=== PATIENT | male | born 1940 | race Two or more races ===

== ENCOUNTER 2025-03-01 06:13 | Day surgery (SDC) | payer MEDICARE, SELFPAY ==
[2025-03-01] VITALS (8 sets, daily range): BP systolic 126–144; BP diastolic 69–79; BMI 21.9
[2025-03-01 11:40] LABS: Glucose - Point of Care 108 mg/dl (70-99)
[2025-03-01 13:49] LABS: Glucose - Point of Care 87 mg/dl (70-99)
[2025-03-01 16:01] LABS: Glucose - Point of Care 133 mg/dl (70-99)
== END 2025-03-01 17:30 | disposition home or self-care (01) ==
LOC: SDS 06:13
PROVIDERS: ATTENDING PHYSICIAN Internal Medicine Gastroenterology
DX: K80.70 Calculus of gallbladder and bile duct without cholecystitis without obstruction (principal); R10.84 Generalized abdominal pain; R93.2 Abnormal findings on diagnostic imaging of liver and biliary tract; R10.13 Epigastric pain; K20.90 Esophagitis, unspecified without bleeding; K31.5 Obstruction of duodenum
CPT/HCPCS: 43264; 43262; 74018; 76000; 82962; C1769

== ENCOUNTER 2025-03-03 15:13 | Inpatient (IN) | payer MEDICARE, SELFPAY ==
[2025-03-03] VITALS (17 sets, daily range): BP systolic 101–138; BP diastolic 57–71; BMI 19.8; BMI 20.4
--- NOTE | 2025-03-03 11:26 | ED.GENMED ---
History of Present Illness
<Jamie Lara MD, Resident - Last Filed: 03/03/25 12:05>
General
Chief Complaint: Post Operative Problem(s)
Source: patient
Exam Limitations: none
Time Seen by Provider: 03/03/25 11:00
History of Present Illness
History of Present Illness:
84-year-old male who presents for right upper quadrant abdominal pain associated with chills, nausea, and dark-colored stools. Recently had a ERCP for bile duct stone on 03/01/2025. Since his procedure, he experienced the symptoms with the
exception of the dark-colored stools which started today, symptoms have progressively gotten worse. 1 day after his ERCP, he states that he had an episode of blood-tinged vomiting. No fever, diarrhea, constipation, shortness of breath, weight
loss, numbness, tingling, weakness. Currently on aspirin.
Review of Systems
<Jamie Lara MD, Resident - Last Filed: 03/03/25 12:05>
Review of Systems
Allergies reviewed?: Yes
Other source history: family
All Other Systems: ROS reviewed and negative except as documented in HPI and ROS
Phy Exam
<Jamie Lara MD, Resident - Last Filed: 03/03/25 12:05>
General Physical Exam
General Presentation: well appearing and no apparent distress
General Skin: warm
General Habitus: normal
General Mental: alert
Cardiovascular Exam
Cardiovascular Exam: regular rate/rhythm and no edema
Pulmonary Exam
Pulmonary Exam: lungs clear and no respiratory distress
Gastrointestinal Exam
Gastrointestinal Exam: normal bowel sounds, soft, non distended and other (right upper quadrant tenderness to palpation)
Neurological Exam
Neurological Exam: alert and oriented x3
Skin Exam
Skin Exam: normal color, warm/dry and no rash
Course
<Jamie Lara MD, Resident - Last Filed: 03/03/25 12:05>
Orders/Labs/Results
Orders:
Orders
03/03/25 11:26
Pantoprazole [Protonix IV] 80 mg IV NOW STA
03/03/25 11:31
Type And Crossmatch [Type+Screen] Routine
CBC/With Diff [Complete Blood Count/With Diff] Urgent
CMP [Comprehensive Metabolic Panel] Routine
03/03/25 11:33
Morphine Sulfate 2 mg IV NOW STA
Pantoprazole 80 mg/100 ml Nss [Protonix] 80 mg in 100 ml IV NOW
03/03/25 11:38
US Abdomen Complete/Upper Urgent
Comment:
Reason For Exam: ruq pain
03/03/25 12:00
Consult Gastroenterology [GASTROINTESTINAL CONSULT] Urgent
Consulting Provider: Shruti Harley
Was physician already notified: Yes
03/03/25 13:57
SURGICAL CONSULT Routine
Consulting Provider: Deny Mathew
Was physician already notified: Yes
LevoFLOXacin 500 MG/100 ML [Levaquin] 500 mg in 100 ml IV NOW
MetroNIDAZOLE 500 MG/100 ML [Flagyl 500 mg] 100 ml IV NOW
Abnormal Lab Results
03/03/25
11:31
WBC 14.2 H 10^3/uL
(4.8-10.8)
RBC 4.35 L 10^6/uL
(4.70-6.10)
Hgb 12.6 L g/dL
(13.0-18.0)
Hct 37.1 L %
(39.0-52.0)
Abs Immat Gran (auto) 0.2 H 10^3/uL
(0-0.05)
Absolute Neuts (auto) 12.0 H 10^3/uL
(1.4-6.5)
Absolute Lymphs (auto) 0.4 L 10^3/uL
(1.2-3.4)
Absolute Monos (auto) 1.6 H 10^3/uL
(0.1-0.6)
Immature Gran % 1.1 H %
(0-0.5)
Neutrophils % 84.8 H %
(42.2-75.2)
Lymphocytes % 2.9 L %
(20.5-51.1)
Monocytes % 10.9 H %
(1.7-9.3)
Sodium 134 L mmol/L
(135-145)
Glucose 233 H mg/dl
(70-99)
Total Bilirubin 6.3 H mg/dl
(0.2-1.3)
AST 231 H U/L
(17-59)
ALT 275 H U/L
(0-50)
Alkaline Phosphatase 136 H U/L
(38-126)
Total Protein 6.2 L g/dl
(6.3-8.2)
03/03/25 11:31
03/03/25 11:31
Vital Signs
Initial and Last Documented VS:
Initial Vital Signs
Temp Pulse Resp BP Pulse Ox
98.3 F 81 16 110/63 95
03/03/25 10:46 03/03/25 10:46 03/03/25 10:46 03/03/25 10:46 03/03/25 10:46
Last Documented Vital Signs
Temp Pulse Resp BP Pulse Ox
98 F 82 18 101/61 92
03/03/25 11:16 03/03/25 11:16 03/03/25 11:16 03/03/25 12:00 03/03/25 12:15
<Gigi Duque, DO - Last Filed: 03/03/25 14:04>
Orders/Labs/Results
Orders:
Orders
03/03/25 11:26
Pantoprazole [Protonix IV] 80 mg IV NOW STA
03/03/25 11:31
Type And Crossmatch [Type+Screen] Routine
CBC/With Diff [Complete Blood Count/With Diff] Urgent
CMP [Comprehensive Metabolic Panel] Routine
03/03/25 11:33
Morphine Sulfate 2 mg IV NOW STA
Pantoprazole 80 mg/100 ml Nss [Protonix] 80 mg in 100 ml IV NOW
03/03/25 11:38
US Abdomen Complete/Upper Urgent
Comment:
Reason For Exam: ruq pain
03/03/25 12:00
Consult Gastroenterology [GASTROINTESTINAL CONSULT] Urgent
Consulting Provider: Shruti Harley
Was physician already notified: Yes
03/03/25 13:57
SURGICAL CONSULT Routine
Consulting Provider: Deny Mathew
Was physician already notified: Yes
LevoFLOXacin 500 MG/100 ML [Levaquin] 500 mg in 100 ml IV NOW
MetroNIDAZOLE 500 MG/100 ML [Flagyl 500 mg] 100 ml IV NOW
Abnormal Lab Results
03/03/25
11:31
WBC 14.2 H 10^3/uL
(4.8-10.8)
RBC 4.35 L 10^6/uL
(4.70-6.10)
Hgb 12.6 L g/dL
(13.0-18.0)
Hct 37.1 L %
(39.0-52.0)
Abs Immat Gran (auto) 0.2 H 10^3/uL
(0-0.05)
Absolute Neuts (auto) 12.0 H 10^3/uL
(1.4-6.5)
Absolute Lymphs (auto) 0.4 L 10^3/uL
(1.2-3.4)
Absolute Monos (auto) 1.6 H 10^3/uL
(0.1-0.6)
Immature Gran % 1.1 H %
(0-0.5)
Neutrophils % 84.8 H %
(42.2-75.2)
Lymphocytes % 2.9 L %
(20.5-51.1)
Monocytes % 10.9 H %
(1.7-9.3)
Sodium 134 L mmol/L
(135-145)
Glucose 233 H mg/dl
(70-99)
Total Bilirubin 6.3 H mg/dl
(0.2-1.3)
AST 231 H U/L
(17-59)
ALT 275 H U/L
(0-50)
Alkaline Phosphatase 136 H U/L
(38-126)
Total Protein 6.2 L g/dl
(6.3-8.2)
03/03/25 11:31
03/03/25 11:31
Vital Signs
Initial and Last Documented VS:
Initial Vital Signs
Temp Pulse Resp BP Pulse Ox
98.3 F 81 16 110/63 95
03/03/25 10:46 03/03/25 10:46 03/03/25 10:46 03/03/25 10:46 03/03/25 10:46
Last Documented Vital Signs
Temp Pulse Resp BP Pulse Ox
98 F 82 18 101/61 92
03/03/25 11:16 03/03/25 11:16 03/03/25 11:16 03/03/25 12:00 03/03/25 12:15
<Jamie Lara MD, Resident - Last Filed: 03/03/25 12:05>
MDM/Problems Addressed
Differential Diagnosis Includes:
post ercp complications, pancreatitis, infection of GI tract, cholecystis, cholangitis, peptic ulcer disease
MDM/Problems Addressed:
- CBC shows wbc of 14.2 most likely reactive no fever, hgb 12.6 so anemia will watch carefully
- CMP pending
- Blood type and screen ordered
- ordered a PPI GI drip
- Consulted GI
- Ordered complete upper abdominal ultrasound
- ordered morphine for pain control
<Jamie Lara MD, Resident - Last Filed: 03/03/25 12:05>
*Pulse Oximetry
SaO2: 95
Oxygen Mode of Delivery: Room air
Patient hypoxic: no
*Critical Care Note
Total Time (30-74mins, 75-104mins- exclusive of procedures): Not Applicable
<Gigi Duque, DO - Last Filed: 03/03/25 14:04>
Update Note
Update Note:
2 PM ultrasound concerning for acute calculous cholecystitis. Case discussed with general surgery. At this time, GI at bedside. Will start IV antibiotics and admit
ED Attending Note
<Jamie Lara MD, Resident - Last Filed: 03/03/25 12:05>
-
Portions of this chart may have been created with voice recognition software.� Occasional wrong word or��sound alike� substitutions may have occurred due to the inherent limitations of voice recognition software.
<Gigi Duque, DO - Last Filed: 03/03/25 14:04>
ED Attending Note
Patient seen and examined by attending physician: Yes
I performed a history and physical exam of patient and discussed management with resident, I reviewed resident's note and agree with documented findings and plan of care.: Yes
ED Attending Note:
I have seen and evaluated the patient with a [id number] encounter. I have spoken to the resident and involved in the medical history, the physical exam, medical decision making.
Evaluation and management service: agree unless noted differently below.
Results interpretation: agree unless noted differently below.
Focused HPI: 84-year-old male presenting for evaluation of black and tarry stools. Patient had recent ERCP few days ago where he also had a sphincterotomy. Patient states that his first bowel movement after the procedure was earlier this morning
and it was described as very dark, almost black
Physical exam: Sitting bed comfortably. Mild right upper quadrant tenderness. Rectal exam shows brown stool that is guaiac positive
Medical Decision Making: Will discuss case with GI in regards to further imaging. Will place on PPI drip
Discharge Plan
Departure
Patient Disposition: Admit
Date of Disposition: 03/03/25
Time of Disposition: 14:02
Admit to: Med/Surg
Presentation/result/management discussed w/ accepting MD/DO: Hospitalist
Discharge Problem:
GI (gastrointestinal bleed)
Prescriptions:
No Action
cholecalciferol (vitamin D3) 125 mcg (5,000 unit) Tablet
125 mcg PO DAILY
ferrous sulfate 325 mg (65 mg iron) Tablet
325 mg PO DAILY
montelukast [Singulair] 10 mg Tablet
10 mg PO HS
aspirin 81 mg Tablet
81 mg PO DAILY
atorvastatin 40 mg Tablet
40 mg PO HS
dutasteride 0.5 mg Capsule
0.5 mg PO DAILY
cyanocobalamin (vitamin B-12) 1,000 mcg Tablet
1,000 mcg PO DAILY
mirabegron [Myrbetriq] 50 mg Tablet Extended Release 24 Hr
50 mg PO DAILY
metformin 1,000 mg Tablet
1,000 mg PO DAILY
Jardiance 10 mg Tablet
10 mg PO DAILY
Referrals:
Davon Andersen MD [Family Provider, Internal Medicine]
Interventions
Interventions:
*Risk Screen - Suicide Last Done: 03/03/25 10:46
*General Assessment Last Done: 03/03/25 11:21
*Neglect/Abuse Screening Last Done: 03/03/25 10:46
*ED- Fall Risk Assessment Last Done: 03/03/25 11:21
*ED COVID-19 Vaccine History Last Done: 03/03/25 11:21
*ED Influenza Vaccine History Last Done: 03/03/25 11:21
ED-Skin Assessment Last Done: 03/03/25 12:26
Discharge Date and Time
Print Language: URDU
[2025-03-03 11:40] LABS: Hematocrit 37.1 % (39.0-52.0); Hemoglobin 12.6 g/dL (13.0-18.0); Mean Corp Hgb Conc. 34.0 g/dL (33.0-37.0); Mean Corpuscular Volume 85.3 fL (80.0-94.0); Nucleated Red Blood Cells % 0 % (-); Platelet Count 216 10^3/uL (130-400); Red Cell Dist. Width 14.3 % (11.5-14.5)
[2025-03-03] MEDS: PROTONIX 100 IV (11:45)
[2025-03-03] MEDS: MORPHINE SULFATE 2 MG IV (11:48)
[2025-03-03] MEDS: PROTONIX IV 80 MG IV (11:49)
[2025-03-03 11:58] LABS: ALT (SGPT) 275 U/L (0-50); AST (SGOT) 231 U/L (17-59); Albumin 3.7 g/dl (3.5-5.0); Alkaline Phosphatase 136 U/L (38-126); Blood Urea Nitrogen 15 mg/dl (9-20); Calcium 8.9 mg/dl (8.4-10.2); Carbon Dioxide 22 mmol/L (22-30); Chloride 103 mmol/L (98-107); Estimated Creatinine Clearance 56 ml/min; Glucose 233 mg/dl (70-99); Potassium 4.1 mmol/L (3.5-5.1); Sodium 134 mmol/L (135-145); Total Protein 6.2 g/dl (6.3-8.2); eGFR > 60.00
--- NOTE | 2025-03-03 12:41 | CON.GI ---
Addendum entered and electronically signed by Urvashi Summers DO 03/03/25 16:45:
The patient was seen and examined by me independently in collaboration with the nurse practitioner.
Past medical history/social history/medications/allergies/family history reviewed.
Lab data and imaging data reviewed.
Keila Luna is an 84 y.o. male with recent EGD/EUS/ERCP on 03/[address] Velez for choledocholithiasis on prior US admitted with RUQ pain with radiation to the back. Reports feeling well immediately after the procedure, the pain started Friday
night into Fri. with one episode of NBNB emesis. He also reports one dark stool this morning, but states it was dark brown, not black. His EGD/EUS/ERCP were significant for grade C esophagitis, acquired duodenal stenosis, choledocholithiasis and
cholelithiasis. Biliary sphincterotomy and stone extraction was performed.
On arrival, VSS. Labs significant for leukocytosis with WBC 14K, hemoglobin 12.6, and significantly elevated LFTs, Tbili 6.3, AST 231, ALT 275, Alk phos 136, Lipase 248.
Abdominal US shows sludge and gallstones in the GB with mild wall thickening and minimal pericholecystic fluid, +sonographic murphys sign. CBD measures 7 mm. B/l renal cysts. Nonobstructing right renal calculus.
CT A/P w/ IV Contrast shows distension of the Gallbladder and cystic duct with contrast from recent ERCP. Proximal CBD measures up to 8.5 mm. Small to moderate sized fat only containing left inguinal hernia. Prostamegaly, bladder demonstrates mild
diffuse wall thickening and a left posterior diverticulum.
Given acute rise in LFTs following ERCP, it raises concern for possible post-ERCP cholangitis vs. acute cholecystitis, as evidenced on US and CT as well as pain pattern and positive sonographic hickey sign. Post-ERCP pancreatitis is unlikely given
normal lipase and normal appearance of CT on imaging.
Discussed case with Dr. Velez, plan for repeat ERCP today. Surgery following. Will determine next steps based on findings for ERCP today. Will also assess for possible hemobilia or sphincterotomy bleed given reports of dark stool, though, upon further
questioning and stable Hgb, it does not seem c/w melena.
-PPI
-Antibiotics
-IVF
-NPO for ERCP today
Addendum entered and electronically signed by MAYNOR Deng 03/03/25 16:14:
CT a/p
1. Probable chronic outlet obstruction changes. Questionable cystitis. Otherwise, no convincing acute process in the abdomen or pelvis.
Gallbladder and cystic duct are distended with contrast from recent ERCP. Proximal common bile duct measures up to 8.5 mm, within normal limits for age.
reviewed CT with Dr. Velez and pt daughter. Plan for ERCP this afternoon to ensure no bleeding or CBD obstruction with pain and rise in LFT's. Pt and family to review with dr. Velez prior to procedure.
Addendum entered and electronically signed by MAYNOR Deng 03/03/25 15:26:
reviewed with Dr. Velez - duodenal bleeding or bleeding from sphincterotomy within differential with dark stools and noted stable hbg -- plan for CT now. Pt did eat some breakfast with rice at 9AM. cont to trend hbg and stool record
Original Note:
Consultation
-
Date/Time Consultation Requested: 03/03/25 1200
Date/Time Consultation Performed: 03/03/25 1330
Requesting Provider: Gigi Duque DO
Performing Provider: MAYNOR Swanson, Shruti Harley MD
Reason for Consultation: abdominal pain
Medical History
Chief Complaint / HPI
Chief Complaint: abdominal pain with chills
History of Present Illness:
Pt is a 84yo with hx CAD with prior NV on ASA, skin CA, and recent noted choledocholithiasis. In review with family pt had some RUQ several weeks ago. It took some time for patient to complete US and see Dr. Erazo with noted choledocholithiasis
on US. He was referred to Dr. Velez for evaluation for ERCP. Pt present for EUS/ERCP 03/01- esophagitis, duodenal stenosis There was no sign of significant pathology in the common bile duct terminal bile duct not well visualized no pathology in
pancreas or liver. Pt proceeded to ERCP with stone on cholangiogram but no filling defect in bile duct and concern for cholecystolithiasis with sphincterotomy completed and biliary tree was swept with sludge. Pt now returns with RLQ pain with
chills, nausea, and dark brown stools. He admits to different location of pain as initial pain was RUQ and now pain move severe and right lateral side. On return noted with WBC 14,200, bili 6.3, AST 231, ALT 275, alk phos 136 with lipase pending.
US on return with sludge and gallstone in gallbladder, with mild wall thickening and minimal pericholecystitis fluids with pain over gallbladder concern for acute cholecystitis , b/l renal cysts and non obstructing right renal stone.Pt otherwise
admits to chronic dysphagia with pills and current constipation, Pt also admits to recent change with diabetic medications initially took one medication Synjardy but unable to swallow tablets then started Jardiance and metformin.
02/08/25 labs bili 1.3, AST 19, ALT 21, alk phos 97, Na 133, K 3.6, BUN10, creat 0.75, glucose 167, WBC 6,4, hbg 13.1, hct 42.4, platelets 263.
12/09/24 - US abdomen- cholelithiasis and choledocholithiasis without acute cholecystitis, b/l nephrolthiasis without obstruction, b/l renal cysts
03/03/25 US abdomen
1. There is sludge and gallstones in the gallbladder with mild wall thickening and minimal pericholecystic fluid. Patient reports pain when scanning over the gallbladder. These findings suggest acute cholecystitis.
2. There are bilateral renal cysts
3. There is a nonobstructing right renal calculus
Past Medical History
Past Medical History: CAD, NIDDM, NV and Other (choledocholithiasis )
Social History
Tobacco: Non-Smoker
Alcohol: None
Drug: None
Living: With Family (son)
Employment: Retired
Family History
Family History: Other
Allergies / Home Medications
Allergy/AdvReac Type Severity Reaction Status Date / Time
Penicillins Allergy Unknown Verified 03/03/25 11:21
Sulfa (Sulfonamide Allergy Rash Verified 03/03/25 11:21
Antibiotics)
�Medication �Instructions �Recorded
aspirin 81 mg tablet 81 mg PO DAILY 03/01/25
atorvastatin 40 mg tablet 40 mg PO HS 03/01/25
cholecalciferol (vitamin D3) 125 125 mcg PO DAILY 03/01/25
mcg (5,000 unit) tablet
cyanocobalamin (vitamin B-12) 1,000 mcg PO DAILY 03/01/25
1,000 mcg tablet
dutasteride 0.5 mg capsule 0.5 mg PO DAILY 03/01/25
empagliflozin 10 mg tablet 10 mg PO DAILY 03/01/25
(Jardiance)
ferrous sulfate 325 mg (65 mg 325 mg PO DAILY 03/01/25
iron) tablet
metformin 1,000 mg tablet 1,000 mg PO DAILY 03/01/25
mirabegron 50 mg tablet,extended 50 mg PO DAILY 03/01/25
release 24 hr (Myrbetriq)
montelukast 10 mg tablet 10 mg PO HS 03/01/25
(Singulair)
Review of Systems
-
History Source: Patient and Family
Constitutional: Reports Chills
EENT: Reports No Symptoms
Respiratory: Reports No Symptoms
Cardiac: Reports No Symptoms
Abdomen/GI: Reports Abdominal Pain (Right sided pain ), Constipated and Other (dark brown stools)
: Reports No Symptoms
Musculoskeletal: Reports No Symptoms
Skin: Reports No Symptoms
Neurological: Reports Weakness
Endocrine: Reports No Symptoms
Hematologic/Lymphatic: Reports No Symptoms
Vital Signs
Temp Pulse Resp BP Pulse Ox
98 F 82 18 101/61 92
03/03/25 11:16 03/03/25 11:16 03/03/25 11:16 03/03/25 12:00 03/03/25 12:15
Physical Exam
Exam
General: Well Developed, Well Nourished and No Apparent Distress
HEENT: Normocephalic and Other (jaundice )
Respiratory: Clear
Cardiac: Regular Rhythm
GI: Soft, Non Distended and Tender (right lateral side pain )
Musculoskeletal: No Clubbing and No Cyanosis
Skin: Warm and Dry
Neuro: Awake, Alert and AO x 3
Psych: Calm
Results
WBC 14.2 10^3/uL (4.8-10.8) H 03/03/25 11:31
Hgb 12.6 g/dL (13.0-18.0) L 03/03/25 11:31
Hct 37.1 % (39.0-52.0) L 03/03/25 11:31
MCV 85.3 fL (80.0-94.0) 03/03/25 11:31
Plt Count 216 10^3/uL (130-400) 03/03/25 11:31
Absolute Neuts (auto) 12.0 10^3/uL (1.4-6.5) H 03/03/25 11:31
Sodium 134 mmol/L (135-145) L 03/03/25 11:31
Potassium 4.1 mmol/L (3.5-5.1) 03/03/25 11:31
Chloride 103 mmol/L (98-107) 03/03/25 11:31
Carbon Dioxide 22 mmol/L (22-30) 03/03/25 11:31
BUN 15 mg/dl (9-20) 03/03/25 11:31
Creatinine 0.8 mg/dL (0.7-1.3) 03/03/25 11:31
Calcium 8.9 mg/dl (8.4-10.2) 03/03/25 11:31
Total Bilirubin 6.3 mg/dl (0.2-1.3) H 03/03/25 11:31
AST 231 U/L (17-59) H 03/03/25 11:31
ALT 275 U/L (0-50) H 03/03/25 11:31
Alkaline Phosphatase 136 U/L (38-126) H 03/03/25 11:31
Diagnostic Image Results:
02/08/25 labs bili 1.3, AST 19, ALT 21, alk phos 97, Na 133, K 3.6, BUN10, creat 0.75, glucose 167, WBC 6,4, hbg 13.1, hct 42.4, platelets 263.
12/09/24 - US abdomen- cholelithiasis and choledocholithiasis without acute cholecystitis, b/l nephrolthiasis witout obstruction, b/l renal cysts
03/03/25 US abdomen
1. There is sludge and gallstones in the gallbladder with mild wall thickening and minimal pericholecystic fluid. Patient reports pain when scanning over the gallbladder. These findings suggest acute cholecystitis.
2. There are bilateral renal cysts
3. There is a nonobstructing right renal calculus
03/01- EUS
- LA Grade C esophagitis.
- No gross lesions in the entire stomach.
- Acquired duodenal stenosis.
- Normal duodenal bulb and first portion of the duodenum.
-
- There was no sign of significant pathology in the pancreatic head
and pancreatic body.
- There was no evidence of significant pathology in the left lobe
of the liver.
- No specimens collected.
03/01-ERCP - The major papilla appeared normal.
- A filling defect consistent with a stone was seen on the
cholangiogram (in gallbladder). No filling defect noted in the bile
duct.
- The examination was suspicious for cholecystolithiasis.
- A biliary sphincterotomy was performed.
- The biliary tree was swept and sludge was found.
colonoscopy 2006
Assessment / Plan
-
Pt is a 84yo with hx CAD with prior NV on ASA, skin CA, and recent noted choledocholithiasis. In review with family pt had some RUQ several weeks ago. It took some time for patient to complete US and see Dr. Erazo with noted choledocholithiasis
on US. He was referred to Dr. Velez for evaluation for ERCP. Pt present for EUS/ERCP 03/01- esophagitis, duodenal stenosis There was no sign of significant pathology in the common bile duct terminal bile duct not well visualized no pathology in
pancreas or liver. Pt proceeded to ERCP with stone on cholangiogram but no filling defect in bile duct and concern for cholecystolithiasis with sphincterotomy completed and biliary tree was swept with sludge. Pt now returns with RLQ pain with
chills, nausea, and dark brown stools. He admits to different location of pain as initial pain was RUQ and now pain move severe and right lateral side. On return noted with WBC 14,200, bili 6.3, AST 231, ALT 275, alk phos 136 with lipase pending.
US on return with sludge and gallstone in gallbladder, with mild wall thickening and minimal pericholecystitis fluids with pain over gallbladder concern for acute cholecystitis , b/l renal cysts and non obstructing right renal stone.
Pt otherwise admits to chronic dysphagia with pills and current constipation, but otherwise denies odynophagia, GERD, nausea, vomiting, dark urine, diarrhea, or rectal bleeding. Hx colonoscopy 2006. Pt also admits to recent change with diabetic
medications initially took one medication Synjardy but unable to swallow tablets then started Jardiance and metformin.
02/08/25 labs bili 1.3, AST 19, ALT 21, alk phos 97, Na 133, K 3.6, BUN10, creat 0.75, glucose 167, WBC 6,4, hbg 13.1, hct 42.4, platelets 263.
12/09/24 - US abdomen- cholelithiasis and choledocholithiasis without acute cholecystitis, b/l nephrolthiasis witout obstruction, b/l renal cysts
03/03/25 US abdomen
1. There is sludge and gallstones in the gallbladder with mild wall thickening and minimal pericholecystic fluid. Patient reports pain when scanning over the gallbladder. These findings suggest acute cholecystitis.
2. There are bilateral renal cysts
3. There is a nonobstructing right renal calculus
-right sided abdominal pain
-increased LFT's
-US 03/03 with concern for acute cholecystitis
-s/p EUS/ERCP 03/01 for choledocholithiasis with esophagitis, duodenal stenosis There was no sign of significant pathology in the common bile duct terminal bile duct not well visualized no pathology in pancreas or liver. Pt proceeded to ERCP
with stone on cholangiogram but no filling defect in bile duct and concern for cholecystolithiasis with sphincterotomy completed and biliary tree was swept with sludge
-leukocytosis
-dark stools with stable hbg on admission
-recently started Jardiance and metformin
-dysphagia with pills
-recent constipation
other med problems:
-CAD with prior NV
-skin CA
PLAN:
etiology of symptoms with concern for acute cholecystitis, vs GI bleeding with dark stool vs other
will review with and Dr. Harley with recent EUS/ERCP completed
noted elevated LFT's- will add lipase and total bili
NPO
for surgical eval
for IV antibiotics
heme checks stools
protonix gtt started in ER
monitor for recurrent dark stools and any signs of bleeding
pain control per hospitalist
reviewed with Dr. Loaiza
updated family at bedside
-
-
Thank you for consultation and allowing me to participate in the patient's care. Please call the senior electrical controls engineer GI physician during the after hours with any questions or concerns.
[2025-03-03] MEDS: FLAGYL 500 MG 100 IV ×2 (14:13→22:03)
--- NOTE | 2025-03-03 14:48 | HPS.HSE ---
Family Physician
-
Family Physician: Davon Andersen
Chief Complaint
-
abdominal pain
History of Present Illness
84-year-old male past medical history of Diabetes, skin cancer status post surgical resection, allergies, overactive bladder, BPH, presenting with right upper quadrant abdominal pain associate with chills, nausea and dark-colored stools. �He
recently had ERCP for bile duct stone on 03/01. �Since the procedure he has been having right upper quadrant pain and chills. �Dark-colored stools started today. �1 day after ERCP he states he had episode of blood-tinged vomiting which is resolved.
�Denies fever, diarrhea, constipation, shortness of breath, weight loss, numbness or tingling or focal weakness.
Denies smoking or alcohol use.
No family history of biliary problems.
Medical History
Past Medical History
Past Medical History: Reports Other (Diabetes, skin cancer status post surgical resection, allergies, overactive bladder, BPH,)
Past Surgical History: Reports Other (skin cancer surgery )
Social History
Tobacco: Non-smoker
Alcohol: None
Drug: None
Family History
Family History: Not pertinent
Allergies / Home Medications
Allergies reflects when Allergies were last updated in QA on Request.
Home Medications with original date entered in QA on Request
Allergy/Medication List:
Allergies
Allergy/AdvReac Type Severity Reaction Status Date / Time
Penicillins Allergy Unknown Verified 03/03/25 11:21
Sulfa (Sulfonamide Allergy Rash Verified 03/03/25 11:21
Antibiotics)
Home Medications
aspirin 81 mg tablet 81 mg PO DAILY 03/01/25
atorvastatin 40 mg tablet 40 mg PO HS 03/01/25
cholecalciferol (vitamin D3) 125 mcg (5,000 unit) tablet 125 mcg PO DAILY 03/01/25
cyanocobalamin (vitamin B-12) 1,000 mcg tablet 1,000 mcg PO DAILY 03/01/25
dutasteride 0.5 mg capsule 0.5 mg PO DAILY 03/01/25
empagliflozin 10 mg tablet (Jardiance) 10 mg PO DAILY 03/01/25
ferrous sulfate 325 mg (65 mg iron) tablet 325 mg PO DAILY 03/01/25
metformin 1,000 mg tablet 1,000 mg PO DAILY 03/01/25
mirabegron 50 mg tablet,extended release 24 hr (Myrbetriq) 50 mg PO DAILY 03/01/25
montelukast 10 mg tablet (Singulair) 10 mg PO HS 03/01/25
Review of Systems
-
History Source: Patient
A 12 point ROS was completed and negative except as noted: Yes
Constitutional: Reports No Symptoms
EENT: Reports No Symptoms
Respiratory: Reports No Symptoms
Cardiac: Reports No Symptoms
Abdomen/GI: Reports See HPI
: Reports No Symptoms
Musculoskeletal: Reports No Symptoms
Skin: Reports No Symptoms
Neurological: Reports No Symptoms
Endocrine: Reports No Symptoms
Hematologic/Lymphatic: Reports No Symptoms
Psych: Reports No Symptoms
Physical Exam
Vital Signs
Vital Signs
Temp Pulse Resp BP Pulse Ox
98 F 82 18 101/61 92
03/03/25 11:16 03/03/25 11:16 03/03/25 11:16 03/03/25 12:00 03/03/25 12:15
Physical Exam
General: Well Developed, Well Nourished and No Apparent Distress
HEENT: NormoCephalic, Moist mucous membranes and Atraumatic
Respiratory: Clear
Cardiac: S1/S2 and Regular Rhythm; No Murmur or Rub
GI: Soft, Non Distended, Normal Bowel Sounds and Tender (RUQ ); No Organomegaly
Rectal: Deferred by Provider
Musculoskeletal: No Clubbing, No Cyanosis and No Edema
Skin: No Rash
Neuro: Nonfocal/grossly intact
Laboratory Results
-
03/03/25 11:31
03/03/25 11:31
Laboratory Results
Total Bilirubin 6.3 mg/dl (0.2-1.3) H 03/03/25 11:31
AST 231 U/L (17-59) H 03/03/25 11:31
ALT 275 U/L (0-50) H 03/03/25 11:31
Alkaline Phosphatase 136 U/L (38-126) H 03/03/25 11:31
Data Reviewed
-
Lab Data: Labs Reviewed by me
Old Records: Reviewed
Impression/Plan
-
IMPRESSION:
PLAN:
# Acute cholecystitis
- Ultrasound abdomen showed sludge and gallstones in gallbladder with mild wall thickening and minimal Saul cholecystic fluid suggesting acute cholecystitis
-Recent ERCP showed filling defect consistent with stone in gallbladder, suspicious for cholecystolithiasis, biliary sphincterotomy performed
- Levaquin/Flagyl
- N.p.o.
- IV fluids
-Dilaudid, Zofran
- General Surgery consulted
# Transaminitis concerning for acute choledocholithiasis
- Total bilirubin of 6.3, AST/ALT in 200s
-check lipase
- GI consulted
# Dark stools/blood-tinged vomiting possibly upper GI bleeding from recent ERCP
- Protonix 40 twice daily
- Clear liquid diet
Type 2 diabetes
- Hold metformin, Jardiance
- Insulin sliding scale
- Continue prophylactic statin
-hold aspirin, statin
Skin cancer status post resection
Overactive bladder
- Continue Myrbetriq
BPH
- Continue dutasteride
Allergies
- Continue montelukast
Full code
DVT prophylaxis�SCDs
N.p.o.
[2025-03-03 14:57] LABS: Lipase 248 U/L (23-300)
[2025-03-03] MEDS: LEVAQUIN 100 IV (15:18)
--- NOTE | 2025-03-03 15:20 | CON.GS ---
Consultation
-
Date/Time Consultation Performed: 03/03/2025 3 PM
Performing Provider: Priyanka
Reason for Consultation: Abdominal pain, gallstones
Medical History
-
Chief Complaint: Right upper quadrant abdominal pain
History of Present Illness:
Patient is an 84-year-old male with previous history of CAD/VT but subsequent normal stress test, NIDDM, BPH and recent diagnosis of gallstones and choledocholithiasis.
Patient had been experiencing intermittent bouts of right upper quadrant abdominal pain and had followed up with outpatient GI. He was subsequently referred to Dr. Velez for ERCP which he underwent on the 03/01/2025, 48 hours ago. He initially felt
well immediately after the procedure. Friday night into Friday he did develop abdominal pain and he had an episode of vomiting. 1 episode of dark-colored stool. His appetite has been poor but he has been eating small amounts. His pain
persisted overnight and into this morning prompting emergency department evaluation.
His daughter is at bedside. His granddaughter is on conference phone call during evaluation. Patient reports continued discomfort in the right upper quadrant but not worsening. Nausea and vomiting have subsided.
Past Medical History
Past Medical History: Other (CAD with previous history of VT over 8 years ago and negative subsequent stress test. Overactive bladder, BPH, [id number]-[id number] diabetes mellitus)
Past Surgical History: Other (Resection of scalp skin cancer)
Social History
Living: With Family
Family History
Family History: Reviewed & Not Pertinent
Allergies / Home Medications
Allergy/AdvReac Type Severity Reaction Status Date / Time
Penicillins Allergy Unknown Verified 03/03/25 11:21
Sulfa (Sulfonamide Allergy Rash Verified 03/03/25 11:21
Antibiotics)
�Medication �Instructions �Recorded �Confirmed �Type
aspirin 81 mg tablet 81 mg PO DAILY 03/01/25 03/03/25 History
atorvastatin 40 mg tablet 40 mg PO HS 03/01/25 03/03/25 History
cholecalciferol (vitamin D3) 125 125 mcg PO DAILY 03/01/25 03/03/25 History
mcg (5,000 unit) tablet
cyanocobalamin (vitamin B-12) 1,000 mcg PO DAILY 03/01/25 03/03/25 History
1,000 mcg tablet
dutasteride 0.5 mg capsule 0.5 mg PO DAILY 03/01/25 03/03/25 History
empagliflozin 10 mg tablet 10 mg PO DAILY 03/01/25 03/03/25 History
(Jardiance)
ferrous sulfate 325 mg (65 mg 325 mg PO DAILY 03/01/25 03/03/25 History
iron) tablet
metformin 1,000 mg tablet 1,000 mg PO DAILY 03/01/25 03/03/25 History
mirabegron 50 mg tablet,extended 50 mg PO DAILY 03/01/25 03/03/25 History
release 24 hr (Myrbetriq)
montelukast 10 mg tablet 10 mg PO HS 03/01/25 03/03/25 History
(Singulair)
Review of Systems
-
History Source: Patient
All other systems: Negative unless noted
A 10 point review of systems was completed, and was negative except as per HPI.
Physical Exam
Vital Signs
Temp Pulse Resp BP Pulse Ox
98 F 82 18 115/61 96
03/03/25 11:16 03/03/25 11:16 03/03/25 14:00 03/03/25 14:00 03/03/25 14:30
03/02/25 03/03/25 03/04/25
06:59 06:59 06:59
Actual Weight 57.4 kg
Body Mass Index (BMI) 19.8
Lab Results
03/03/25 11:31
03/03/25 11:31
WBC 14.2 10^3/uL (4.8-10.8) H 03/03/25 11:31
Hgb 12.6 g/dL (13.0-18.0) L 03/03/25 11:31
Hct 37.1 % (39.0-52.0) L 03/03/25 11:31
Plt Count 216 10^3/uL (130-400) 03/03/25 11:31
Abs Immat Gran (auto) 0.2 10^3/uL (0-0.05) H 03/03/25 11:31
Neutrophils % 84.8 % (42.2-75.2) H 03/03/25 11:31
Physical Exam
General: Well Developed, Well Nourished, No Apparent Distress and Comfortable (Evaluated emergency department, lying on stretcher comfortably.)
HEENT: Normocephalic and Anicteric
Respiratory: Non Labored Respirations
GI: Soft, Tender (mild tenderness to palpation in the right upper quadrant. No rebound rigidity or guarding.) and Distended
Neuro: AO x 3
Psych: Calm
Data Reviewed
-
Ultrasound: Image Personally Visualized and interpreted (Gallbladder sludge and stones. Mild wall thickening and Saul cholecystic fluid. Sonographic Robledo sign elicited. Bilateral renal cysts and nonobstructing right renal calculus.), Report
Reviewed by me, Discussed with Physician, Discussed with Patient and Discussed with Family
Labs: Labs Reviewed by me (Leukocytosis with white blood cell count of 14, chemistry panel notable for bilirubin of 6.3 elevated AST ALT and alkaline phosphatase. Lipase is normal at 248.), Discussed with Physician, Discussed with Patient and
Discussed with Family
Assessment / Plan
-
Assessment/plan: 48-year-old male presenting postprocedure day #2 status post ERCP, sphincterotomy and stone extraction with acute onset of abdominal pain and elevated LFTs.
Given recent GI instrumentation recommend CT abdomen/pelvis while cholecystitis is on the differential diagnosis other postprocedural related complication should also be ruled out (sphincterotomy bleeding or clot causing biliary obstruction,
pancreatitis, less likely hollow visceral injury)
Advised patient and his family that further surgical recommendations pending CT imaging and discussions with GI service. No indications for emergent/urgent cholecystectomy.
[2025-03-03 17:17] LABS: Glucose - Point of Care 120 mg/dl (70-99)
[2025-03-03 18:38] LABS: Hematocrit 35.4 % (39.0-52.0); Hemoglobin 11.8 g/dL (13.0-18.0)
--- NOTE | 2025-03-03 19:45 | PTCARENOTE ---
Pt arrived to 2S @1930. Pt ambulated from stretcher to bed. VSS. Pt denies co of pain. Tolerating clears. Pt grandson at bedside. Bed at lowest position. Call sen within reach. Care ongoing.
[2025-03-03] MEDS: NSS 1000 IV (20:25)
[2025-03-03] MEDS: NOVOLOG FLEXPEN-LOW RESISTANCE SC (20:26)
[2025-03-03 21:50] LABS: Glucose - Point of Care 216 mg/dl (70-99)
[2025-03-03] MEDS: SINGULAIR 10 MG PO (22:05)
[2025-03-04 00:44] LABS: Hematocrit 33.9 % (39.0-52.0); Hemoglobin 11.4 g/dL (13.0-18.0)
[2025-03-04 03:10] VITALS: BP 109/64
[2025-03-04] MEDS: FLAGYL 500 MG 100 IV ×3 (05:39→21:53)
[2025-03-04] MEDS: TYLENOL 650 MG PO ×4 (06:25→20:45)
--- NOTE | 2025-03-04 07:23 | PTCARENOTE ---
Pt now with R sided abdominal pain radiating to chest. Pt denies SOB. Mejia Wilkins RN BARIATRIC to bedside, EKG and troponin ordered.
[2025-03-04 07:40] VITALS: BP 122/68
--- NOTE | 2025-03-04 07:45 | W.PN.GI.CBS2 ---
Addendum entered and electronically signed by Urvashi Cameronissa DO Kristopher 03/04/25 09:47:
The patient was seen and examined by me independently in collaboration with the nurse practitioner.
Past medical history/social history/medications/allergies/family history reviewed.
Lab data and imaging data reviewed.
Patient seen in follow-up this morning with [place] Wilkins. s/p repeat EUS/ERCP yesterday with Dr. Velez. No evidence of postsphincterotomy bleeding. The duct was swept again. Evidence of cholelithiasis. 1x transpapillary stent was placed in the
gallbladder as well as a plastic CBD stent.
He reports having 10/10 RUQ pain as well as substernal discomfort (new), this morning, slightly better, now 4/10. Ordered EKG and troponin, which returned normal.
AM LFTs pending, will also add on a lipase to rule out post-ercp pancreatitis
continue antibiotics
Keep on clears until AM labs result
Needs repeat EGD with Dr. Veelz in 6 weeks for stent removal
Original Note:
Today's Communication / Plan
-
s/p repeat EUS/ERCP with noted cholecystitis and stent placed, no bleeding seen
pain was 10/10 prior to admission now 4/10 with some chest pain -
will check EKG and troponin reviewed with nursing staff
await AM labs
NPO
surgical following await input
cont antibiotics
trend stool noted with black tarry stool since admission
cont protonix BID
pain control per hospitalist
updated family at bedside - grandson
Assessment / Plan
-
Pt is a 84yo with hx CAD with prior IL on ASA, skin CA, and recent noted choledocholithiasis. In review with family pt had some RUQ several weeks ago. It took some time for patient to complete US and see Dr. Erazo with noted choledocholithiasis
on US. He was referred to Dr. Velez for evaluation for ERCP. Pt present for EUS/ERCP 03/01- esophagitis, duodenal stenosis There was no sign of significant pathology in the common bile duct terminal bile duct not well visualized no pathology in
pancreas or liver. Pt proceeded to ERCP with stone on cholangiogram but no filling defect in bile duct and concern for cholecystolithiasis with sphincterotomy completed and biliary tree was swept with sludge. Pt now returns with RLQ pain with
chills, nausea, and dark brown stools. He admits to different location of pain as initial pain was RUQ and now pain move severe and right lateral side. On return noted with WBC 14,200, bili 6.3, AST 231, ALT 275, alk phos 136 with lipase pending.
US on return with sludge and gallstone in gallbladder, with mild wall thickening and minimal pericholecystitis fluids with pain over gallbladder concern for acute cholecystitis , b/l renal cysts and non obstructing right renal stone. Pt otherwise
admits to chronic dysphagia with pills. Pt also admits to recent change with diabetic medications initially took one medication Synjardy but unable to swallow tablets then started Jardiance and metformin. 03/03 s/p repeat EUS/ERCP with GB and CBD
stent placed. 03/04 cont abd pain 08/26 with chest pain.
02/08/25 labs bili 1.3, AST 19, ALT 21, alk phos 97, Na 133, K 3.6, BUN10, creat 0.75, glucose 167, WBC 6,4, hbg 13.1, hct 42.4, platelets 263.
12/09/24 - US abdomen- cholelithiasis and choledocholithiasis without acute cholecystitis, b/l nephrolthiasis witout obstruction, b/l renal cysts
03/03/25 US abdomen
1. There is sludge and gallstones in the gallbladder with mild wall thickening and minimal pericholecystic fluid. Patient reports pain when scanning over the gallbladder. These findings suggest acute cholecystitis.
2. There are bilateral renal cysts
3. There is a nonobstructing right renal calculus
03/03/25 CT a/p 1. Probable chronic outlet obstruction changes. Questionable cystitis. Otherwise, no convincing acute process in the abdomen or pelvis.
03/03- EUS - There was dilation in the common bile duct which measured up to 9 mm- Echogenic material (hypoechoic) suggestive of sludge vs ? clot was visualized endosonographically in the common bile duct- Multiple stones were visualized
endosonographically in the gallbladder body - There was no sign of significant pathology in the ampulla. No specimens collected
03/03- ERCP -
- Acquired duodenal stenosis.
- Prior biliary sphincterotomy appeared open. No bleeding or clot
was seen.
- The common bile duct was mildly dilated.
- The biliary tree was swept and sludge was found.
- Given the previously injected contrast remaining persistently in
GB and US showing findings suggestive of cholecystitis, decision was
made to place stent into GB. One plastic stent was placed into the
gallbladder.
- One plastic stent was placed into the common bile duct.
-right sided abdominal pain
-chest pain 03/04
-increased LFT's
-US 03/03 with concern for acute cholecystitis
-s/p EUS/ERCP 03/01 for choledocholithiasis with esophagitis, duodenal stenosis There was no sign of significant pathology in the common bile duct terminal bile duct not well visualized no pathology in pancreas or liver. Pt proceeded to ERCP
with stone on cholangiogram but no filling defect in bile duct and concern for cholecystolithiasis with sphincterotomy completed and biliary tree was swept with sludge
-s/p repeat EUS/ERCP with concern for cholecytsitis with GB stent placed and stent in CBD
-leukocytosis
-dark stools with stable hbg on admission-- noted black tarry after admission
-recently started Jardiance and metformin
-dysphagia with pills
-esophagitis per recent EGD
-recent constipation
other med problems:
-CAD with prior IL
-skin CA
PLAN:
s/p repeat EUS/ERCP with noted cholecystitis and stent placed, no bleeding seen
pain was 02/25 prior to admission now /10 with some chest pain -
will check EKG and troponin reviewed with nursing staff
await AM labs
NPO
surgical following await input
cont antibiotics
trend stool noted with black tarry stool since admission
cont protonix BID
pain control per hospitalist
updated family at bedside - grandson
Subjective
Subjective
Date of Service: March 04, 2025
pt feeling ok last PM then recurrent abdominal pain and chest pain this am was 02/25 yesterday now 08/26
Objective
Data Reviewed
Laboratory Data:
Laboratory Results
Total Bilirubin 6.3 mg/dl (0.2-1.3) H 03/03/25 11:31
AST 231 U/L (17-59) H 03/03/25 11:31
ALT 275 U/L (0-50) H 03/03/25 11:31
Alkaline Phosphatase 136 U/L (38-126) H 03/03/25 11:31
Lipase 248 U/L (23-300) 03/03/25 11:31
Vital Signs and I&O:
Vital Signs
Temp Pulse Resp BP Pulse Ox
98.5 F 84 14 109/64 93
03/04/25 03:10 03/04/25 03:10 03/04/25 03:10 03/04/25 03:10 03/04/25 03:10
I&O
03/03/25 03/04/25 03/05/25
06:59 06:59 06:59
Intake Total 980 / 980 360 / 360
Balance 980 / 980 360 / 360
Physical Exam
Physical Exam
HEENT: Anicteric
Cardiology: Normal Sinus Rhythm
Pulmonary: Clear
GI: Soft, Distended and Tender (epigastric/mild )
Extremities: No Edema
Neuro: Non Focal
[2025-03-04] MEDS: FEOSOL PO (08:24)
[2025-03-04] MEDS: VITAMIN B-12 1000 MCG PO (08:24)
[2025-03-04] MEDS: MYRBETRIQ EXTENDED RELEASE 50 MG PO (08:25)
[2025-03-04] MEDS: NSS (PRESERVATIVE FREE) 10 ML IV ×2 (08:25→20:28)
[2025-03-04] MEDS: PROSCAR 5 MG PO (08:25)
[2025-03-04] MEDS: PROTONIX IV 40 MG IV ×2 (08:26→20:27)
[2025-03-04] MEDS: NOVOLOG FLEXPEN-LOW RESISTANCE 2 UNITS SC ×2 (08:29→12:51)
[2025-03-04 08:30] LABS: Glucose - Point of Care 201 mg/dl (70-99)
[2025-03-04] MEDS: CITROMA 300 ML PO (08:34)
[2025-03-04 09:22] LABS: Hematocrit 34.6 % (39.0-52.0); Hemoglobin 11.7 g/dL (13.0-18.0); Mean Corp Hgb Conc. 33.8 g/dL (33.0-37.0); Mean Corpuscular Volume 85.2 fL (80.0-94.0); Nucleated Red Blood Cells % 0 % (-); Platelet Count 203 10^3/uL (130-400); Red Cell Dist. Width 14.5 % (11.5-14.5)
[2025-03-04 09:38] LABS: Troponin I < 0.012 ng/ml
[2025-03-04] MEDS: NSS 1000 IV (09:38)
--- NOTE | 2025-03-04 09:45 | CM ---
Reviewed the chart notes and spoke with the patient and granddaughter at the bedside. Patient resides with spouse and son in a three story home with one step to enter. The patient reports no DME/VN/SNF in the past. The patient has a caregiver
seven days weekly for eight hours each day. Granddaughter unsure if through the waiver program. Pharmacy of choice is [email or web address]. CM continues to be available to patient/family and is monitoring medical plan for needs at
discharge.
Plan: Discharge to home when medically stable. Anticipate no additional needs at this time.
[2025-03-04 09:57] LABS: ALT (SGPT) 207 U/L (0-50); AST (SGOT) 112 U/L (17-59); Albumin 3.2 g/dl (3.5-5.0); Alkaline Phosphatase 131 U/L (38-126); Blood Urea Nitrogen 15 mg/dl (9-20); Calcium 8.7 mg/dl (8.4-10.2); Carbon Dioxide 22 mmol/L (22-30); Chloride 104 mmol/L (98-107); Estimated Creatinine Clearance 64 ml/min; Glucose 209 mg/dl (70-99); Potassium 4.7 mmol/L (3.5-5.1); Sodium 133 mmol/L (135-145); Total Protein 5.7 g/dl (6.3-8.2); eGFR > 60.00
--- NOTE | 2025-03-04 09:57 | W.PN.HOSP.TC ---
Today's Communication/Plan
-
lipase greater than 2000, GI and GS aware
NPO
LR at 120cc/ml
fleet enema for constipation
cards consulted for chest pain, likely GI cause
Assessment / Plan
Assessment / Plan
84-year-old male with T2DM, skin cancer s/p surgical resection, overactive bladder, BPH, and recent EGD/ERCP on 03/01 for bile duct stone outpatient who presented with epigastric abdominal pain associate with chills, nausea and dark-colored stools,
now s/p urgent ERCP and 2 gallbladder stents inpatient on 03/03.
#Epigastric pain s/p ERCP x2, now with gallbladder and CBD stents
#Acute cholecystitis
#Elevated lipase
Abd US with sludge and gallstones in gallbladder with mild wall thickening and minimal pericholecystic fluid suggesting acute cholecystitis.
- GI and general surgery following
- Pt with PCN allergy; continue Levaquin and Flagyl
- Protonix 40 BID
- Dilaudid PRN, Zofran PRN
#Elevated lipase, likely post-ERCP pancreatitis
Lipase >2000.
- Monitor lipase level
- LR at 120cc/hr
- NPO
- Trend lipase level
#Chest pain, mostly epigastric region
- Cardiology consulted
- Trop negative, EKG with low voltage
- Continue aspirin
- Resume atorvastatin when LFT has improved.
#Constipation
AXR with moderate stool.
- Colace BID prn, Miralax prn
- Fleet enema 03/04
#Type 2 diabetes
A1C 7.7%
- Hold metformin, Jardiance
- Insulin sliding scale
#Overactive bladder
- Continue Myrbetriq
#BPH
- Continue dutasteride
#Allergies
- Continue montelukast
CODE STATUS: Full code
DVT prophylaxis � Lovenox SQ
Anticipated Discharge: 24 - 48 hours
Subjective/Interval History
-
Date of Service: March 04, 2025
- This morning, he reports chest and epigastric 10/10 pain. EKG and trops wnl.
- He feels constipated, AXR with mild stool burden. Pt requested fleet enema, ordered.
Objective Data
-
Labs:
Laboratory Results
03/04/25 03/04/25
00:25 08:35
WBC 10.2
Hgb 11.4 L 11.7 L
Hct 33.9 L 34.6 L
Plt Count 203
Sodium 133 L
Potassium 4.7
Chloride 104
Carbon Dioxide 22
BUN 15
Creatinine 0.7
Glucose 209 H
Calcium 8.7
Total Bilirubin 3.0 H D
AST 112 H
ALT 207 H
Alkaline Phosphatase 131 H
Vital Signs:
Vital Signs
Temp Pulse Resp BP Pulse Ox
97.8 F 60 16 122/68 96
03/04/25 07:40 03/04/25 07:40 03/04/25 07:40 03/04/25 07:40 03/04/25 07:40
I&O
03/03/25 03/04/25 03/05/25
06:59 06:59 06:59
Intake Total 980 / 980 360 / 360
Balance 980 / 980 360 / 360
Physical Exam
-
General: Well Developed, Well Nourished, No Apparent Distress, Comfortable and Conversant
HEENT: Normocephalic, Atraumatic, Moist Mucous Membranes and PERRLA
Respiratory: Clear to Auscultation
Cardiac: Regular Rhythm
GI: Soft, Nondistended, Normal Bowel Sounds and Tender (epigastric region)
Skin: Warm, Dry and IV Access / Catheter Site
Neuro: AO x 3
Psych: Calm and Intact Judgement/Insight
[2025-03-04 10:02] LABS: Glycohemoglobin (HgbA1c) 7.7 % (4.0-5.6)
--- NOTE | 2025-03-04 10:27 | CON.CAR ---
Addendum entered and electronically signed by Atilio Macedo MD 03/04/25 11:47:
I saw and examined the patient.
The International Project Manager's note was reviewed and I agree with the note.
Comment:
GEN: No distress, awake, Ox3
HEENT: supple, anicteric, mmm
LUNGS: CTA, no wheezes/rales
CV: Reg, S1/S2, 1/6 syst LSB, no gallop
ABD: soft, BS+, + epigastric pain
EXT: No edema
NEURO: Gross non-focal
SKIN: No rash
Plan:
84-year-old male with past medical history of diabetes, hypertension, remote CAD presents with right upper quadrant pain and abdominal pain. He was recently diagnosed with gallstones and choledocholithiasis and had a ERCP with stone extraction. We
were asked to evaluate him for possible chest pains. The patient's pain is in the epigastric area rating up into his neck area. He states he has never had this pain before. He is very active and can walk several miles a day with no symptoms of
chest pain or shortness of breath.
EKG reviewed by me has normal sinus rhythm and normal ECG
Cardiac troponin is negative x 1
I suspect his chest pains are more of a GI in nature. We will check an echocardiogram to look for any wall motion abnormalities or significant cardiac pathology.
For now would continue current care and GI treatments.
Will continue aspirin. Okay to resume atorvastatin when liver function testing has improved.
Original Note:
Consultation
Consultation Request
Date/Time Consultation Requested: 03/04/2025
Date/Time Consultation Performed: 03/04/2025
Requesting Provider: Danielle Davalos MD
Performing Provider: Ximena Martinez PA-C for Dr. Macedo
Reason for Consultation: Epigastric pain
Medical History
-
History of Present Illness:
Patient is an 84-year-old male with past medical history significant for possible CAD, type 2 diabetes, hyperlipidemia, overactive bladder, BPH, skin cancer status post Mohs and recent diagnosis of gallstones and choledocholithiasis who presented to
emergency department 03/03/2025 right upper quadrant and abdominal pain. He had undergone ERCP, sphincterotomy and stone extraction on 03/01/2025 and felt well immediately following procedure however then developed worsening abdominal pain with
episode of vomiting and dark-colored stools. Due to persistent symptoms he came to emergency department. He was noted to have abnormal LFTs on admission. He underwent repeat repeat EUS/ERCP with noted cholecystitis and stent placed 03/03/2025.
Morning of 03/04/2024 patient complained of epigastric discomfort radiating upwards towards chest which prompted cardiology consult. EKG demonstrates sinus rhythm without ischemia. Troponin negative.
Patient's granddaughter at bedside who also helps provide history. Patient reports many years ago when in [place] he was told he may have had an 'angina attack' but was not formally diagnosed with coronary artery disease. In 2018 at [place] [facility] he had a stress test for shortness of breath which reportedly was unremarkable and did not show any evidence of coronary artery disease or ischemia. He has been very active as an outpatient and routinely walks 3 miles daily without chest
pain or shortness of breath.
Past medical history:
'Angina attack', many years ago in [place]
Gallstones with choledocholithiasis
s/p ERCP, sphincterotomy and stone extraction 03/01/2025
Type 2 diabetes
Hyperlipidemia
Overactive bladder
BPH
Skin cancer on scalp status post Mohs
Past Medical History
Past Medical History: Other (See HPI)
Past Surgical History: Other (Mohs procedure for skin cancer of scalp 2022, hernia repair 1986, s/p ERCP 03/01/2025)
Social History
Tobacco: Non-Smoker
Alcohol: None
Drug: None
Personal:
Living: With Family ( and son)
Family History
Family History: CAD (Father, at 84)
Allergies / Home Medications
Allergy/AdvReac Type Severity Reaction Status Date / Time
Penicillins Allergy was told Verified 03/04/25 02:52
as a child.
Sulfa (Sulfonamide Allergy Rash-ITCHY Verified 03/04/25 02:52
Antibiotics)
�Medication �Instructions �Recorded �Confirmed �Type
aspirin 81 mg tablet 81 mg PO DAILY 03/01/25 03/04/25 History
atorvastatin 40 mg tablet 40 mg PO HS 03/01/25 03/04/25 History
cholecalciferol (vitamin D3) 125 125 mcg PO DAILY 03/01/25 03/04/25 History
mcg (5,000 unit) tablet
cyanocobalamin (vitamin B-12) 1,000 mcg PO DAILY 03/01/25 03/04/25 History
1,000 mcg tablet
dutasteride 0.5 mg capsule 0.5 mg PO DAILY 03/01/25 03/04/25 History
empagliflozin 10 mg tablet 10 mg PO DAILY 03/01/25 03/04/25 History
(Jardiance)
ferrous sulfate 325 mg (65 mg 325 mg PO DAILY 03/01/25 03/04/25 History
iron) tablet
metformin 1,000 mg tablet 1,000 mg PO DAILY 03/01/25 03/04/25 History
mirabegron 50 mg tablet,extended 50 mg PO DAILY 03/01/25 03/04/25 History
release 24 hr (Myrbetriq)
montelukast 10 mg tablet 10 mg PO HS 03/01/25 03/04/25 History
(Singulair)
Review of Systems
-
History Source: Patient and Family
All other systems: Negative unless noted
Physical Exam
Vital Signs
Temp Pulse Resp BP Pulse Ox
97.8 F 60 16 122/68 96
03/04/25 07:40 03/04/25 07:40 03/04/25 07:40 03/04/25 07:40 03/04/25 07:40
GEN: No distress, awake, Ox3, sitting in bed
HEENT: supple, anicteric, mmm
LUNGS: CTA, no wheezes/rales
CV: Reg, S1/S2, no murmur, rub or gallop
ABD: soft, BS+, NT/ND
EXT: No edema, clubbing or cyanosis
NEURO: Gross non-focal
SKIN: No rash, warm, dry, pink
Lab Results
03/04/25 08:35
03/04/25 08:35
Troponin I < 0.012 ng/ml 03/04/25 08:35
Impression / Plan
-
Family Physician: Davon Andersen
Cardiology:None, prior to admission, initial consult Dr. Macedo
Impression:
Presented 03/03/2025 with right sided abdominal pain, nausea, dark stools
Acute cholecystitis/choledocholithiasis
s/p ERCP, sphincterotomy and stone extraction 03/01/2025
s/p repeat EUS/ERCP with noted cholecystitis and stent placed 03/03/2025
Elevated transaminitis
Dark stools; esophagitis per recent EGD
Epigastric/chest pain 03/04/2025
'Angina attack', many years ago in [place]; unremarkable stress test in 2018
Gallstones with choledocholithiasis
s/p ERCP, sphincterotomy and stone extraction 03/01/2025
Type 2 diabetes
Hyperlipidemia
Overactive bladder
BPH
Skin cancer on scalp status post Mohs
Echo 03/04/2025: Ordered
Plan:
- Presenting postprocedure day #2 status post ERCP, sphincterotomy and stone extraction with acute onset of abdominal pain, nausea, dark stools found to have elevated LFTs. Patient underwent repeat repeat EUS/ERCP with noted cholecystitis and stent
placed. GI and surgery following. Continue antibiotics. Plan now currently is for conservative management with consideration of outpatient cholecystectomy once patient has recovered from acute event
- Patient developed epigastric/chest pain radiating upward on morning of 03/04/2025. He reportedly has history of 'angina attack' while living in [place] many years ago and was treated conservatively. He reports he had an outpatient stress test for
shortness of breath in 2018 at [facility] which was negative for coronary artery disease or ischemia. Patient was walking 3 miles daily prior to admission/acute cholecystitis without concerning anginal symptoms
-EKG shows sinus rhythm without ischemic changes. Troponin negative.
-Check echocardiogram to rule out wall motion abnormalities. If echo unremarkable suspect epigastric/chest pain is secondary to ongoing acute cholecystitis, choledocholithiasis not cardiac in etiology.
- Continue risk factor management with aspirin and statin which patient was on as outpatient once stable from acute cholecystitis/choledocholithiasis
Plan was discussed with patient, patient's granddaughter at bedside, nursing and hospitalist/resident team
HPI 03/04/2025:
Patient is an 84-year-old male with past medical history significant for possible CAD, type 2 diabetes, hyperlipidemia, overactive bladder, BPH, skin cancer status post Mohs and recent diagnosis of gallstones and choledocholithiasis who presented to
emergency department 03/03/2025 right upper quadrant and abdominal pain. He had undergone ERCP, sphincterotomy and stone extraction on 03/01/2025 and felt well immediately following procedure however then developed worsening abdominal pain with
episode of vomiting and dark-colored stools. Due to persistent symptoms he came to emergency department. He was noted to have abnormal LFTs on admission. He underwent repeat repeat EUS/ERCP with noted cholecystitis and stent placed 03/03/2025.
Morning of 03/04/2024 patient complained of epigastric discomfort radiating upwards towards chest which prompted cardiology consult. EKG demonstrates sinus rhythm without ischemia. Troponin negative.
Patient's granddaughter at bedside who also helps provide history. Patient reports many years ago when in [place] he was told he may have had an 'angina attack' but was not formally diagnosed with coronary artery disease. In 2018 at [place]
[facility] he had a stress test for shortness of breath which reportedly was unremarkable and did not show any evidence of coronary artery disease or ischemia. He has been very active as an outpatient and routinely walks 3 miles daily without chest
pain or shortness of breath.
Data Reviewed
-
EKG: Report Reviewed by me, Discussed with Physician, Discussed with Nurse, Discussed with Patient and Discussed with Family
Labs: Labs Reviewed by me, Discussed with Physician, Discussed with Nurse, Discussed with Patient and Discussed with Family
[2025-03-04] MEDS: CARAFATE SUSPENSION 1 GM PO ×2 (10:45→20:27)
--- NOTE | 2025-03-04 11:33 | W.PN.UPDATE ---
Update Note
Progress Note Update
I saw and evaluated the patient with the resident.
HPI: 84-year-old male past medical history of Diabetes, skin cancer status post surgical resection, overactive bladder, BPH, p/w epigastric abdominal pain associate with chills, nausea and dark-colored stools. �
He recently had ERCP for bile duct stone on 03/01.
He returned to the ED due to persistent abd pain and underwent urgent repeat ERCP on 03/03. There was no evidence of postsphincterotomy bleeding and evidence of cholelithiasis. 1x transpapillary stent was placed in the gallbladder as well as a
plastic CBD stent.
His admission Abd US showed gallbladder sludge and gallstones with mild wall thickening and minimal pericholecystic fluid.
General surgery was consulted for acute cholecystitis.
A/P:
# Epigastric pain likely 2/2 acute cholecystitis
# Transaminitis
# s/p ERCP x2, now with gallbladder and CBD stents
Abd ultrasound showed sludge and gallstones in gallbladder with mild wall thickening and minimal Saul cholecystic fluid suggesting acute cholecystitis
Cover with Levaquin/Flagyl
Protonix 40 BID
Dilaudid PRN, Zofran PRN
General Surgery on board, recc surgery, timing TBD
trend LFT
GI on board
# Post ERCP pancreatitis
Monitor lipase level
Cont IVF change to RL
Make NPO
Trend lipase level
# Less likely cardiac chest pain
Trop negative
EKG unrevealing, low voltage noted
Card was consulted, recc to cont current GI treatments. Continue aspirin and resume atorvastatin when LFT has improved.
# Type 2 diabetes
A1C 7.7%
Hold metformin, Jardiance
Insulin sliding scale
# Skin cancer status post resection
# Overactive bladder
Continue Myrbetriq
# BPH
Continue dutasteride
# Allergies
Continue montelukast
Full code
DVT prophylaxis� Lovenox SQ
DW RN
DW daughter at bedside
total time 52 min
[2025-03-04 11:59] LABS: Lipase > 2000 U/L (23-300)
--- NOTE | 2025-03-04 12:11 | W.PN.GS2 ---
Addendum entered and electronically signed by Chemo Ramírez MD 03/04/25 12:30:
I saw and examined the patient.
The Package Clerk's note was reviewed and I agree with the note.
Comment: C/o upper abd pain, moderate ttp to epigastrium, mild ttp to ruq; no immediate plans for CCY. Suspect post procedure pancreatitis. Diet advancement per GI. GS will s/o, he will f/u outpt to discuss CCY.
Original Note:
Today's Communication / Plan
-
--
Assessment / Plan
-
84 yo male with recent diagnosis of gallstones and choledocholithiasis who presented status post ERCP, sphincterotomy and stone extraction with acute onset of abdominal pain and elevated LFTs.
PPD 3 EUS/ERCP biliary sphincterotomy with clearance of sludge
PPD 1 ERCP clearance of sludge with placement of transpapillary stent into the GB (confirmed gallstones present) and stent to the CBD
Leukocytosis resolved
LFT's improving
Epigastric pain present with lipase >2k, suspect post procedure pancreatitis
Plan:
Diet as per GI
Analgesics as needed
Antibiotics and IVF as per primary
Would recommend eventual cholecystectomy to prevent future recurrence which can be scheduled as an outpatient procedure after his recovery
Granddaughter present, questions addressed. Case discussed with GI team during rounds.
Subjective Data
-
Date of Service: March 04, 2025
Pt seen and examined at bedside with Dr. Ramírez. Denies n/v. Epigastric pain into the RUQ present with associated tenderness. Reports constipation.
Objective Data
-
Intake and Output
03/03/25 03/04/25 03/05/25
06:59 06:59 06:59
Intake Total 980 / 980 360 / 360
Balance 980 / 980 360 / 360
Intake:
Oral fluids 360 / 360
IV fluids (Total) 780 / 780
IV piggybacks 200 / 200
Other:
Number of approximated MODERATE 3 2
amounts of urine
Vital Signs
Temp Pulse Resp BP Pulse Ox
97.8 F 60 16 122/68 96
03/04/25 07:40 03/04/25 07:40 03/04/25 07:40 03/04/25 07:40 03/04/25 07:40
Lab Results
03/04/25 08:35
03/04/25 08:35
Calcium 8.7 mg/dl (8.4-10.2) 03/04/25 08:35
Total Bilirubin 3.0 mg/dl (0.2-1.3) H D 03/04/25 08:35
AST 112 U/L (17-59) H 03/04/25 08:35
ALT 207 U/L (0-50) H 03/04/25 08:35
Alkaline Phosphatase 131 U/L (38-126) H 03/04/25 08:35
Total Protein 5.7 g/dl (6.3-8.2) L 03/04/25 08:35
Albumin 3.2 g/dl (3.5-5.0) L 03/04/25 08:35
Physical Exam
-
NAD
ABD soft, tenderness to epigastrium (mod), mild to RUQ, ND
[2025-03-04] MEDS: LR 1000 IV ×2 (12:13→22:55)
[2025-03-04 12:23] VITALS: BP 141/71
[2025-03-04] MEDS: NOVOLOG FLEXPEN-LOW RESISTANCE SC (12:32)
[2025-03-04 12:43] LABS: Glucose - Point of Care 210 mg/dl (70-99)
[2025-03-04] MEDS: LOVENOX 40 MG SC (12:50)
[2025-03-04] MEDS: DILAUDID 0.25 MG IV ×3 (13:04→18:28)
[2025-03-04] MEDS: FLEET PHOSPHATE ENEMA-ADULT 135 ML RECTAL (14:10)
[2025-03-04] MEDS: LEVAQUIN 150 IV (16:11)
[2025-03-04 18:06] LABS: Glucose - Point of Care 170 mg/dl (70-99)
[2025-03-04] MEDS: NOVOLOG FLEXPEN-LOW RESISTANCE 1 UNITS SC (18:28)
[2025-03-04 21:45] LABS: Glucose - Point of Care 121 mg/dl (70-99)
[2025-03-04] MEDS: DILAUDID 0.5 MG IV (21:51)
[2025-03-04] MEDS: SINGULAIR PO (22:05)
[2025-03-04 23:45] VITALS: BP 120/63
[2025-03-05 00:39] LABS: Glucose - Point of Care 120 mg/dl (70-99)
[2025-03-05] MEDS: NOVOLOG FLEXPEN-LOW RESISTANCE SC ×4 (00:40→16:50)
[2025-03-05] MEDS: FLAGYL 500 MG 100 IV ×3 (06:00→21:00)
[2025-03-05 06:15] LABS: Hematocrit 36.0 % (39.0-52.0); Hemoglobin 12.2 g/dL (13.0-18.0); Mean Corp Hgb Conc. 33.9 g/dL (33.0-37.0); Mean Corpuscular Volume 83.7 fL (80.0-94.0); Platelet Count 199 10^3/uL (130-400); Red Cell Dist. Width 14.2 % (11.5-14.5)
[2025-03-05] MEDS: DILAUDID 0.5 MG IV ×2 (06:15→12:06)
[2025-03-05 06:16] LABS: Glucose - Point of Care 129 mg/dl (70-99)
[2025-03-05 06:42] LABS: ALT (SGPT) 142 U/L (0-50); AST (SGOT) 61 U/L (17-59); Albumin 3.1 g/dl (3.5-5.0); Alkaline Phosphatase 122 U/L (38-126); Blood Urea Nitrogen 11 mg/dl (9-20); Calcium 8.1 mg/dl (8.4-10.2); Carbon Dioxide 25 mmol/L (22-30); Chloride 103 mmol/L (98-107); Estimated Creatinine Clearance 74 ml/min; Glucose 120 mg/dl (70-99); Potassium 3.9 mmol/L (3.5-5.1); Sodium 134 mmol/L (135-145); Total Protein 5.4 g/dl (6.3-8.2); eGFR > 60.00
[2025-03-05 07:10] VITALS: BP 126/67
--- NOTE | 2025-03-05 07:26 | W.PN.HOSP.TC ---
Addendum entered and electronically signed by Jeramie Gray MD 03/05/25 14:50:
Late documentation.
Seen and examined the patient. Agree with the plan formulated by the resident. See changes in my documentation
84-year-old male with abdominal pain. Patient had ERCP for a stone on 03/01/2025. Return to ED with abdominal pain and underwent urgent ERCP on 03/03/2025 . Patient was admitted
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 Prior biliary sphincterotomy appears open no bleeding. CBD mildly dilated. Biliary tree was swept and sludge was found. 1 plastic stent placed in the gallbladder. 1 plastic stent in the CBD
CAT scan - Probable chronic outlet obstruction changes. Questionable cystitis. Otherwise, no convincing acute process in the abdomen or pelvis.
Awake alert oriented, cardiovascular system S1-S2 appreciated
Chest clear to auscultation
Abdomen mild epigastric tenderness
No pedal edema
# Abdominal pain
ERCP 03/03/2025 with stents into the gallbladder as well as CBD
Likely post ERCP pancreatitis
May need repeat EGD in 6 weeks for stent removal
Currently on antibiotics
Surgery evaluation noted-no plans for cholecystectomy
Continue Levaquin and Flagyl to treat possible acute cholecystitis
Pain control
IV fluids
Clear liquid diet with supplement
# Coronary disease-continue statin, aspirin
# Mild hyponatremia-follow
# Diabetes-hemoglobin A1c-7.7
Patient is on Jardiance, metformin as outpatient
Accu-Cheks and sliding scale coverage
# Hyperlipidemia-hold statin with slightly elevated LFTs
# Enlarged prostate-Dutasteride
# DVT prophylaxis-Lovenox
# Full code
Discussed with GI
D/W Grand son at bed side
Part of this note was created using voice recognition system. Occasional wrong word or��sound alike� substitutions may have inadvertently occurred due to the inherent limitations of voice recognition software. If noted kindly bring it to my
attention for correction.
Original Note:
Today's Communication/Plan
-
GI advance diet from n.p.o. to clears
Monitor pain control
Senna and MiraLAX scheduled
Assessment / Plan
Assessment / Plan
84-year-old male with T2DM, skin cancer s/p surgical resection, overactive bladder, BPH, and recent EGD/ERCP on 03/01 for bile duct stone outpatient who presented with epigastric abdominal pain associate with chills, nausea and dark-colored stools,
now s/p urgent ERCP and 2 gallbladder stents inpatient on 03/03.
#Epigastric pain s/p ERCP x2, now with gallbladder and CBD stents
#Acute cholecystitis
#Elevated lipase
Abd US with sludge and gallstones in gallbladder with mild wall thickening and minimal pericholecystic fluid suggesting acute cholecystitis. PPD 4 EUS/ERCP biliary sphincterotomy with clearance of sludge. PPD 2 ERCP clearance of sludge with
placement of transpapillary stent into the GB (confirmed gallstones present) and stent to the CBD
- GI and general surgery following
--GS recs outpatient cholecystectomy
- Pt with PCN allergy; continue IV Levaquin 750 mg daily and IV Flagyl 500 mg every 8 hours
- Protonix 40 BID
- IV Dilaudid 0.25 mg for moderate pain and 0.5 mg for severe pain as needed
- Zofran PRN
#Elevated lipase, likely post-ERCP pancreatitis.
Lipase >2000 03/04. Lipase 3223 03/05.
- Monitor lipase level
- LR at 120cc/hr
- NPO 03/04, now on CLD per GI
- Trend lipase
#Chest pain, mostly epigastric region
- Cardiology consulted
- Trop negative, EKG with low voltage
- Continue aspirin
- Resume atorvastatin when LFT has improved.
#Constipation
AXR with moderate stool.
- Colace BID prn, Miralax daily, Sennakot qhs
- Fleet enema 03/04: No formed BM but distention of liquid stool with relief
#Type 2 diabetes
A1C 7.7%
- Hold metformin, Jardiance
- Insulin sliding scale
#Overactive bladder
- Continue Myrbetriq
#BPH
- Continue dutasteride
#Allergies
- Continue montelukast
CODE STATUS: Full code
DVT prophylaxis: Lovenox SQ
Dispo: Pending PT and pain control
Anticipated Discharge: > 48 hours
Subjective/Interval History
-
Date of Service: March 05, 2025
-This morning, he reports 4/10 epigastric pain. He believes this pain is mild managed with the current regimen. I discussed with him the the 2 different doses he has, 1 for moderate pain and 1 for severe pain and to communicate this with nursing
to get the appropriate dose.
-He reports that yesterday he did not have a bowel movement with Fleet enema, however he did have a lot of liquid distended in his stomach is no longer distended.
-GI advanced diet from n.p.o. to clear. He tolerated it well this morning for breakfast. He has no other acute complaints. Daughter is at bedside and updated.
Objective Data
-
Labs:
Laboratory Results
03/05/25
06:00
WBC 10.2
Hgb 12.2 L
Hct 36.0 L
Plt Count 199
Sodium 134 L
Potassium 3.9
Chloride 103
Carbon Dioxide 25
BUN 11
Creatinine 0.6 L
Glucose 120 H
Calcium 8.1 L
Total Bilirubin 1.7 H D
AST 61 H
ALT 142 H
Alkaline Phosphatase 122
Vital Signs:
Vital Signs
Temp Pulse Resp BP Pulse Ox
98.6 F 73 15 120/63 93
03/04/25 23:45 03/04/25 23:45 03/04/25 23:45 03/04/25 23:45 03/04/25 23:45
I&O
03/04/25 03/05/25 03/06/25
06:59 06:59 06:59
Intake Total / 3920 / 3920
Balance / 3920 / 3920
Physical Exam
-
General: Well Developed, Well Nourished, No Apparent Distress and Comfortable
HEENT: Normocephalic, Atraumatic and Moist Mucous Membranes
Respiratory: Clear to Auscultation
Cardiac: Regular Rhythm and S1/S2
GI: Soft, Nondistended, Normal Bowel Sounds and Tender (TTP and epigastric region and left lower and upper quadrant.)
Musculoskeletal: No Clubbing, No Cyanosis and No Edema
Skin: Warm and Dry
Neuro: AO x 3
Psych: Calm and Intact Judgement/Insight
[2025-03-05] MEDS: PROSCAR 5 MG PO (07:55)
[2025-03-05] MEDS: FEOSOL 325 MG PO (07:55)
[2025-03-05] MEDS: PROTONIX IV 40 MG IV ×2 (07:55→20:49)
[2025-03-05] MEDS: CARAFATE SUSPENSION 1 GM PO ×2 (07:55→20:49)
[2025-03-05] MEDS: VITAMIN B-12 1000 MCG PO (07:55)
[2025-03-05] MEDS: NSS (PRESERVATIVE FREE) 10 ML IV ×2 (07:55→21:03)
[2025-03-05] MEDS: MYRBETRIQ EXTENDED RELEASE 50 MG PO (07:55)
[2025-03-05] MEDS: LR 1000 IV ×2 (07:59→18:03)
[2025-03-05 08:24] LABS: Lipase 3223 U/L (23-300)
--- NOTE | 2025-03-05 08:47 | W.PN.GI.CBS2 ---
Today's Communication / Plan
-
Increase pain medication for better control. Clear liquids, if tolerates. c/w LR.
Assessment / Plan
-
Pt is a 84yo with hx CAD with prior PA on ASA, skin CA, and recent noted choledocholithiasis. In review with family pt had some RUQ several weeks ago. It took some time for patient to complete US and see Dr. Erazo with noted choledocholithiasis
on US. He was referred to Dr. Velez for evaluation for ERCP. Pt present for EUS/ERCP 03/01- esophagitis, duodenal stenosis There was no sign of significant pathology in the common bile duct terminal bile duct not well visualized no pathology in
pancreas or liver. Pt proceeded to ERCP with stone on cholangiogram but no filling defect in bile duct and concern for cholecystolithiasis with sphincterotomy completed and biliary tree was swept with sludge. Pt now returns with RLQ pain with
chills, nausea, and dark brown stools. He admits to different location of pain as initial pain was RUQ and now pain move severe and right lateral side. On return noted with WBC 14,200, bili 6.3, AST 231, ALT 275, alk phos 136 with lipase pending.
US on return with sludge and gallstone in gallbladder, with mild wall thickening and minimal pericholecystitis fluids with pain over gallbladder concern for acute cholecystitis , b/l renal cysts and non obstructing right renal stone. Pt otherwise
admits to chronic dysphagia with pills. Pt also admits to recent change with diabetic medications initially took one medication Synjardy but unable to swallow tablets then started Jardiance and metformin. 03/03 s/p repeat EUS/ERCP with GB and CBD
stent placed. 03/04 cont abd pain 08/26 with chest pain. Tropoinin negative, EKG w/o ischemic changes. Lipase found to be >2000. Clinically, symptoms consistent with post-ERCP pancreatitis.
02/08/25 labs bili 1.3, AST 19, ALT 21, alk phos 97, Na 133, K 3.6, BUN10, creat 0.75, glucose 167, WBC 6,4, hbg 13.1, hct 42.4, platelets 263.
12/09/24 - US abdomen- cholelithiasis and choledocholithiasis without acute cholecystitis, b/l nephrolthiasis witout obstruction, b/l renal cysts
03/03/25 US abdomen
1. There is sludge and gallstones in the gallbladder with mild wall thickening and minimal pericholecystic fluid. Patient reports pain when scanning over the gallbladder. These findings suggest acute cholecystitis.
2. There are bilateral renal cysts
3. There is a nonobstructing right renal calculus
03/03/25 CT a/p 1. Probable chronic outlet obstruction changes. Questionable cystitis. Otherwise, no convincing acute process in the abdomen or pelvis.
03/03- EUS - There was dilation in the common bile duct which measured up to 9 mm- Echogenic material (hypoechoic) suggestive of sludge vs ? clot was visualized endosonographically in the common bile duct- Multiple stones were visualized
endosonographically in the gallbladder body - There was no sign of significant pathology in the ampulla. No specimens collected
03/03- ERCP -
- Acquired duodenal stenosis.
- Prior biliary sphincterotomy appeared open. No bleeding or clot
was seen.
- The common bile duct was mildly dilated.
- The biliary tree was swept and sludge was found.
- Given the previously injected contrast remaining persistently in
GB and US showing findings suggestive of cholecystitis, decision was
made to place stent into GB. One plastic stent was placed into the
gallbladder.
- One plastic stent was placed into the common bile duct.
-right sided abdominal pain
-chest pain 03/04
-increased LFT's
-US 03/03 with concern for acute cholecystitis
-s/p EUS/ERCP 03/01 for choledocholithiasis with esophagitis, duodenal stenosis There was no sign of significant pathology in the common bile duct terminal bile duct not well visualized no pathology in pancreas or liver. Pt proceeded to ERCP
with stone on cholangiogram but no filling defect in bile duct and concern for cholecystolithiasis with sphincterotomy completed and biliary tree was swept with sludge
-s/p repeat EUS/ERCP with concern for cholecytsitis with GB stent placed and stent in CBD
-leukocytosis
-dark stools with stable hbg on admission-- noted black tarry after admission. Hgb remains stable. No bleeding seen on repeat exam.
-recently started Jardiance and metformin
-dysphagia with pills
-esophagitis per recent EGD
-recent constipation
other med problems:
-CAD with prior PA
-skin CA
s/p repeat EUS/ERCP with noted cholecystitis and stent placed, no bleeding seen. ERCP c/b pancreatitis
#Post-ERCP Pancreatitis
-Lipase >2000 ---> 3223
-LFTs continue to improve, consistent with adequate decompression, I feel his pancreatitis is the etiology of his current symptoms and not his cholecystitis, this has been addressed by placement of GB stent by Dr. Velez
-Currently getting LR @ 120 cc/hr
-Need to increase pain medications to get better control, discussed with primary team, to reeval patient and review current pain regimen. Once we get his pain under better control I feel we may be able to advance his diet
#Acute cholecystitis
#choledocholithiasis
-- s/p placement of transpapillary stent in the GB and biliary sphincterotomy with plastic CBD stent
-f/u outpatient with Dr. Velez in 6 weeks for stent removal
-Eventual cholecystectomy as an outpatient
Subjective
Subjective
Date of Service: March 05, 2025
Patient seen in follow-up this morning, grandson at bedside. He reports severe abdominal pain overnight, had a difficult time getting comfortable. He has been receiving pain medication, dose increased for dilaudid .25 mg to .50 mg last night. Lipase
>2000 ---> 3223. His LFTs continue to improve. Currently getting LR @ 120 cc/hr.
Objective
Data Reviewed
Laboratory Data:
Laboratory Results
03/05/25 06:00
03/05/25 06:00
Laboratory Results
Total Bilirubin 1.7 mg/dl (0.2-1.3) H D 03/05/25 06:00
AST 61 U/L (17-59) H 03/05/25 06:00
ALT 142 U/L (0-50) H 03/05/25 06:00
Alkaline Phosphatase 122 U/L (38-126) 03/05/25 06:00
Lipase 3223 U/L (23-300) H* 03/05/25 06:00
Vital Signs and I&O:
Vital Signs
Temp Pulse Resp BP Pulse Ox
98.6 F 73 15 120/63 93
03/04/25 23:45 03/04/25 23:45 03/04/25 23:45 03/04/25 23:45 03/04/25 23:45
I&O
03/04/25 03/05/25 03/06/25
06:59 06:59 06:59
Intake Total 980 / 980 3920 / 3920
Balance 980 / 980 3920 / 3920
Physical Exam
Physical Exam
HEENT: Anicteric
Cardiology: Normal Sinus Rhythm
Pulmonary: Clear
GI: Soft, Distended and Tender (epigastric/mild )
Extremities: No Edema
Neuro: Non Focal
[2025-03-05 12:08] LABS: Glucose - Point of Care 103 mg/dl (70-99)
[2025-03-05 13:16] VITALS: BP 126/67; PULSE 90; O2SAT 92
[2025-03-05 15:43] VITALS: BP 129/75
[2025-03-05] MEDS: LEVAQUIN 150 IV (16:07)
[2025-03-05 16:33] LABS: Glucose - Point of Care 145 mg/dl (70-99)
[2025-03-05] MEDS: DILAUDID 0.25 MG IV ×2 (17:04→22:16)
[2025-03-05] MEDS: LOVENOX 40 MG SC (17:07)
[2025-03-05] MEDS: SENOKOT 17.2 MG PO (21:00)
[2025-03-05] MEDS: SINGULAIR PO (21:00)
[2025-03-05 21:53] LABS: Glucose - Point of Care 110 mg/dl (70-99)
[2025-03-05 23:15] VITALS: BP 134/74
[2025-03-06] MEDS: DILAUDID 0.5 MG IV (02:46)
[2025-03-06] MEDS: LR 1000 IV (02:49)
[2025-03-06] MEDS: NOVOLOG FLEXPEN-LOW RESISTANCE SC ×3 (02:50→16:58)
[2025-03-06] MEDS: FLAGYL 500 MG 100 IV ×3 (06:17→22:31)
[2025-03-06 07:15] VITALS: BP 115/60
[2025-03-06 07:28] LABS: Glucose - Point of Care 82 mg/dl (70-99)
--- NOTE | 2025-03-06 07:34 | W.PN.GI.CBS2 ---
Today's Communication / Plan
-
Clincially improving, advance diet. If tolerates, d/c fluid and okay for d/c. Outpatient f/u scheduled with Dr. Velez. GI will sign off, please call with ?
Assessment / Plan
-
Pt is a 84yo with hx CAD with prior [place] on ASA, skin CA, and recent noted choledocholithiasis. In review with family pt had some RUQ several weeks ago. It took some time for patient to complete US and see Dr. Erazo with noted choledocholithiasis
on US. He was referred to Dr. Velez for evaluation for ERCP. Pt present for EUS/ERCP 03/01- esophagitis, duodenal stenosis There was no sign of significant pathology in the common bile duct terminal bile duct not well visualized no pathology in
pancreas or liver. Pt proceeded to ERCP with stone on cholangiogram but no filling defect in bile duct and concern for cholecystolithiasis with sphincterotomy completed and biliary tree was swept with sludge. Pt now returns with RLQ pain with
chills, nausea, and dark brown stools. He admits to different location of pain as initial pain was RUQ and now pain move severe and right lateral side. On return noted with WBC 14,200, bili 6.3, AST 231, ALT 275, alk phos 136 with lipase pending.
US on return with sludge and gallstone in gallbladder, with mild wall thickening and minimal pericholecystitis fluids with pain over gallbladder concern for acute cholecystitis , b/l renal cysts and non obstructing right renal stone. Pt otherwise
admits to chronic dysphagia with pills. Pt also admits to recent change with diabetic medications initially took one medication Synjardy but unable to swallow tablets then started Jardiance and metformin. 03/03 s/p repeat EUS/ERCP with GB and CBD
stent placed. 03/04 cont abd pain 08/26 with chest pain. Tropoinin negative, EKG w/o ischemic changes. Lipase found to be >2000. Clinically, symptoms consistent with post-ERCP pancreatitis.
02/08/25 labs bili 1.3, AST 19, ALT 21, alk phos 97, Na 133, K 3.6, BUN10, creat 0.75, glucose 167, WBC 6,4, hbg 13.1, hct 42.4, platelets 263.
12/09/24 - US abdomen- cholelithiasis and choledocholithiasis without acute cholecystitis, b/l nephrolthiasis witout obstruction, b/l renal cysts
03/03/25 US abdomen
1. There is sludge and gallstones in the gallbladder with mild wall thickening and minimal pericholecystic fluid. Patient reports pain when scanning over the gallbladder. These findings suggest acute cholecystitis.
2. There are bilateral renal cysts
3. There is a nonobstructing right renal calculus
03/03/25 CT a/p 1. Probable chronic outlet obstruction changes. Questionable cystitis. Otherwise, no convincing acute process in the abdomen or pelvis.
03/03- EUS - There was dilation in the common bile duct which measured up to 9 mm- Echogenic material (hypoechoic) suggestive of sludge vs ? clot was visualized endosonographically in the common bile duct- Multiple stones were visualized
endosonographically in the gallbladder body - There was no sign of significant pathology in the ampulla. No specimens collected
03/03- ERCP -
- Acquired duodenal stenosis.
- Prior biliary sphincterotomy appeared open. No bleeding or clot
was seen.
- The common bile duct was mildly dilated.
- The biliary tree was swept and sludge was found.
- Given the previously injected contrast remaining persistently in
GB and US showing findings suggestive of cholecystitis, decision was
made to place stent into GB. One plastic stent was placed into the
gallbladder.
- One plastic stent was placed into the common bile duct.
-right sided abdominal pain
-chest pain 03/04
-increased LFT's
-US 03/03 with concern for acute cholecystitis
-s/p EUS/ERCP 03/01 for choledocholithiasis with esophagitis, duodenal stenosis There was no sign of significant pathology in the common bile duct terminal bile duct not well visualized no pathology in pancreas or liver. Pt proceeded to ERCP
with stone on cholangiogram but no filling defect in bile duct and concern for cholecystolithiasis with sphincterotomy completed and biliary tree was swept with sludge
-s/p repeat EUS/ERCP with concern for cholecytsitis with GB stent placed and stent in CBD
-leukocytosis
-dark stools with stable hbg on admission-- noted black tarry after admission. Hgb remains stable. No bleeding seen on repeat exam.
-recently started Jardiance and metformin
-dysphagia with pills
-esophagitis per recent EGD
-recent constipation
other med problems:
-CAD with prior [place]
-skin CA
s/p repeat EUS/ERCP with noted cholecystitis and stent placed, no bleeding seen. ERCP c/b pancreatitis
#Post-ERCP Pancreatitis-significantly improved
-Lipase >2000 ---> 3223
-LFTs continue to improve, consistent with adequate decompression
-pain being adequately controlled
-Currently getting LR @ 120 cc/hr
-advance to low residue diet, if tolerates it without pain, d/c fluids and okay to d/c
-outpatient f/u with Dr. Velez for stent removal--appt in d/c paperwork
#Acute cholecystitis
#choledocholithiasis
-- s/p placement of transpapillary stent in the GB and biliary sphincterotomy with plastic CBD stent
-f/u outpatient with Dr. Velez in 6 weeks for stent removal
-Eventual cholecystectomy as an outpatient
GI will sign off, please call with questions
Subjective
Subjective
Date of Service: March 06, 2025
Patient seen in follow-up. Doing significantly better today. No pain on exam. Tolerating clears, would like to try eating this morning.
Objective
Data Reviewed
Laboratory Data:
Laboratory Results
Total Bilirubin 1.7 mg/dl (0.2-1.3) H D 03/05/25 06:00
AST 61 U/L (17-59) H 03/05/25 06:00
ALT 142 U/L (0-50) H 03/05/25 06:00
Alkaline Phosphatase 122 U/L (38-126) 03/05/25 06:00
Lipase 3223 U/L (23-300) H* 03/05/25 06:00
Vital Signs and I&O:
Vital Signs
Temp Pulse Resp BP Pulse Ox
98.0 F 86 17 134/74 95
03/05/25 23:15 03/05/25 23:15 03/05/25 23:15 03/05/25 23:15 03/05/25 23:15
I&O
03/05/25 03/06/25 03/07/25
06:59 06:59 06:59
Intake Total 3920 / 3920 3680 / 3680
Balance 3920 / 3920 3680 / 3680
Physical Exam
Physical Exam
HEENT: Anicteric
Cardiology: Normal Sinus Rhythm
Pulmonary: Clear
GI: Soft, Non Distended and Non Tender
Extremities: No Edema
Neuro: Non Focal
[2025-03-06] MEDS: MYRBETRIQ EXTENDED RELEASE 50 MG PO (07:41)
[2025-03-06] MEDS: PROTONIX IV 40 MG IV ×2 (07:41→20:59)
[2025-03-06] MEDS: VITAMIN B-12 1000 MCG PO (07:41)
[2025-03-06] MEDS: NSS (PRESERVATIVE FREE) 10 ML IV ×2 (07:41→20:59)
[2025-03-06] MEDS: CARAFATE SUSPENSION 1 GM PO ×2 (07:42→20:59)
[2025-03-06] MEDS: PROSCAR 5 MG PO (07:42)
[2025-03-06] MEDS: MIRALAX 17 GRAMS PO (07:42)
[2025-03-06] MEDS: FEOSOL 325 MG PO (07:42)
[2025-03-06 07:50] LABS: Hematocrit 34.7 % (39.0-52.0); Hemoglobin 11.2 g/dL (13.0-18.0); Mean Corp Hgb Conc. 32.3 g/dL (33.0-37.0); Mean Corpuscular Volume 86.3 fL (80.0-94.0); Nucleated Red Blood Cells % 0 % (-); Platelet Count 176 10^3/uL (130-400); Red Cell Dist. Width 14.7 % (11.5-14.5)
[2025-03-06 08:03] LABS: ALT (SGPT) 83 U/L (0-50); AST (SGOT) 30 U/L (17-59); Albumin 2.7 g/dl (3.5-5.0); Alkaline Phosphatase 97 U/L (38-126); Blood Urea Nitrogen 9 mg/dl (9-20); Calcium 8.0 mg/dl (8.4-10.2); Carbon Dioxide 23 mmol/L (22-30); Chloride 105 mmol/L (98-107); Estimated Creatinine Clearance 74 ml/min; Glucose 81 mg/dl (70-99); Potassium 4.2 mmol/L (3.5-5.1); Sodium 131 mmol/L (135-145); Total Protein 5.0 g/dl (6.3-8.2); eGFR > 60.00
--- NOTE | 2025-03-06 09:22 | W.PN.HOSP.TC ---
Addendum entered and electronically signed by Jeramie Gray MD 03/06/25 14:02:
Seen and examined the patient. Agree with the plan formulated by the resident. See changes in my documentation
Late documentation.
84-year-old male with abdominal pain. Patient had ERCP for a stone on 03/01/2025. Return to ED with abdominal pain and underwent urgent ERCP on 03/03/2025 . Patient was admitted
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 Prior biliary sphincterotomy appears open no bleeding. CBD mildly dilated. Biliary tree was swept and sludge was found. 1 plastic stent placed in the gallbladder. 1 plastic stent in the CBD
CAT scan - Probable chronic outlet obstruction changes. Questionable cystitis. Otherwise, no convincing acute process in the abdomen or pelvis.
Awake alert oriented, cardiovascular system S1-S2 appreciated
Chest clear to auscultation
Abdomen mild epigastric tenderness
No pedal edema
# Abdominal pain
ERCP 03/03/2025 with stents into the gallbladder as well as CBD
Likely post ERCP pancreatitis
May need repeat EGD in 6 weeks for stent removal
Currently on antibiotics
Surgery evaluation noted-no plans for cholecystectomy
Continue Levaquin and Flagyl to treat possible acute cholecystitis
Patient had breakfast and had more pain. Discussed about low-fat diet for lunch and see how he does
# Coronary disease-continue statin, aspirin
# Mild hyponatremia-follow
# Diabetes-hemoglobin A1c-7.7
Patient is on Jardiance, metformin as outpatient
Accu-Cheks and sliding scale coverage
# Hyperlipidemia-hold statin with slightly elevated LFTs
# Enlarged prostate-Dutasteride
# DVT prophylaxis-Lovenox
# Full code
Discussed with nursing at bedside
Discussed with GI
D/W Grand son at bed side
Part of this note was created using voice recognition system. Occasional wrong word or��sound alike� substitutions may have inadvertently occurred due to the inherent limitations of voice recognition software. If noted kindly bring it to my
attention for correction.
Original Note:
Today's Communication/Plan
-
Advance diet from clears to low residue
DC'd IV fluids
Transition IV antibiotics to p.o.
Okay to discharge home if stable tomorrow
Assessment / Plan
Assessment / Plan
84-year-old male with T2DM, skin cancer s/p surgical resection, overactive bladder, BPH, and recent EGD/ERCP on 03/01 for bile duct stone outpatient who presented with epigastric abdominal pain associate with chills, nausea and dark-colored stools,
now s/p urgent ERCP and 2 gallbladder stents inpatient on 03/03.
#Epigastric pain s/p ERCP x2, now with gallbladder and CBD stents
#Acute cholecystitis
#Elevated lipase
Abd US with sludge and gallstones in gallbladder with mild wall thickening and minimal pericholecystic fluid suggesting acute cholecystitis. PPD 4 EUS/ERCP biliary sphincterotomy with clearance of sludge. PPD 2 ERCP clearance of sludge with
placement of transpapillary stent into the GB (confirmed gallstones present) and stent to the CBD
- GI and general surgery following
--GS recs outpatient cholecystectomy with scheduled follow-up
- Pt with PCN allergy; s/p IV Levaquin 750 mg daily and IV Flagyl 500 mg every 8 hours: Transitioned to p.o. Levaquin and Flagyl for total of course of 7 days (last dose 03/10)
- Protonix 40 BID
- DC IV Dilaudid 0.25 mg for moderate pain, continue IV Dilaudid 0.5 mg for severe pain prn
- Zofran PRN
#Elevated lipase, likely post-ERCP pancreatitis.
Lipase >2000 03/04. Lipase 3223 03/05.
- Monitor lipase level
- DC LR at 120cc/hr
- NPO 03/04, CLD per GI 03/05, advance to low residue today 03/06: Per GI if tolerating diet well, okay to go home with outpatient follow-up with Dr. Velez
#Hyponatremia, new
Na 131 from 134 yesterday. Likely in setting of low p.o. intake and antibiotics. Patient is asymptomatic, CTM.
#Chest pain, mostly epigastric region
- Cardiology consulted
- Trop negative, EKG with low voltage
- Continue aspirin
- Resume atorvastatin when LFT has improved.
#Constipation
AXR with moderate stool.
- Colace BID prn, Miralax daily, Sennakot qhs
- Fleet enema 03/04: No formed BM but distention of liquid stool with relief
#Type 2 diabetes
A1C 7.7%
- Hold metformin, Jardiance
- Insulin sliding scale
#Overactive bladder
- Continue Myrbetriq
#BPH
- Continue dutasteride
#Allergies
- Continue montelukast
CODE STATUS: Full code
DVT prophylaxis: Lovenox SQ
Dispo: Home health per PT: Monitor WBC tomorrow and discharge if stable
Anticipated Discharge: Within 24 hours
Subjective/Interval History
-
Date of Service: March 06, 2025
-This morning, he is sitting at edge of bed getting ready to stand up and walk with walker. His grandson is at bedside. Mr. Luna does not report any overnight events. He states that his pain is well-controlled and he would like to transition off
of IV pain meds if possible as he really wants to go home. He states he has some back pain from sitting in the bed. I discussed and ordered lidocaine patch for him.
-He is tolerating clear liquid diet well. Diet advanced to low residue per GI.
Objective Data
-
Labs:
Laboratory Results
03/06/25
07:36
WBC 14.0 H
Hgb 11.2 L
Hct 34.7 L
Plt Count 176
Sodium 131 L
Potassium 4.2
Chloride 105
Carbon Dioxide 23
BUN 9
Creatinine 0.6 L
Glucose 81
Calcium 8.0 L
Total Bilirubin 1.8 H
AST 30
ALT 83 H
Alkaline Phosphatase 97
Vital Signs:
Vital Signs
Temp Pulse Resp BP Pulse Ox
99.5 F 86 16 115/60 97
03/06/25 07:15 03/06/25 07:15 03/06/25 07:15 03/06/25 07:15 03/06/25 07:15
I&O
03/05/25 03/06/25 03/07/25
06:59 06:59 06:59
Intake Total 3920 / 3920 3680 / 3680
Balance 3920 / 3920 3680 / 3680
Physical Exam
-
General: Well Developed, Well Nourished, No Apparent Distress and Comfortable
HEENT: Normocephalic, Atraumatic and Moist Mucous Membranes
Respiratory: Clear to Auscultation
Cardiac: Regular Rhythm
GI: Soft, Nondistended and Tender (Slightly TTP in epigastric region)
Musculoskeletal: No Clubbing and No Cyanosis
Skin: Warm and Dry
Neuro: AO x 3
Psych: Calm and Intact Judgement/Insight
[2025-03-06] MEDS: LR IV (09:44)
[2025-03-06] MEDS: LIDOCAINE 4% PATCH 1 PATCH TOPICAL (11:00)
[2025-03-06 11:54] LABS: Glucose - Point of Care 164 mg/dl (70-99)
[2025-03-06 11:56] LABS: Lipase 91 U/L (23-300)
[2025-03-06] MEDS: NOVOLOG FLEXPEN-LOW RESISTANCE 1 UNITS SC (12:02)
[2025-03-06] MEDS: TYLENOL 650 MG PO ×2 (12:07→18:10)
[2025-03-06 15:00] VITALS: BP 121/63
[2025-03-06] MEDS: LEVAQUIN 150 IV (16:05)
[2025-03-06 16:50] LABS: Glucose - Point of Care 149 mg/dl (70-99)
[2025-03-06] MEDS: LOVENOX 40 MG SC (18:08)
[2025-03-06] MEDS: REMOVE LIDOCAINE PATCH 1 PATCH REMOVE (20:59)
[2025-03-06 22:20] LABS: Glucose - Point of Care 130 mg/dl (70-99)
[2025-03-06] MEDS: SINGULAIR PO (22:31)
[2025-03-06] MEDS: SENOKOT 17.2 MG PO (22:31)
[2025-03-06] MEDS: ROXICODONE 5 MG PO (22:33)
[2025-03-06 23:40] VITALS: BP 141/83
[2025-03-07] MEDS: TYLENOL 650 MG PO ×3 (03:36→14:53)
[2025-03-07] MEDS: ROXICODONE 5 MG PO (03:36)
[2025-03-07] MEDS: FLAGYL 500 MG PO ×2 (05:10→14:53)
[2025-03-07 07:55] VITALS: BP 119/67
[2025-03-07 08:02] LABS: Glucose - Point of Care 185 mg/dl (70-99)
[2025-03-07 08:02] LABS: Hematocrit 33.9 % (39.0-52.0); Hemoglobin 11.8 g/dL (13.0-18.0); Mean Corp Hgb Conc. 34.8 g/dL (33.0-37.0); Mean Corpuscular Volume 82.9 fL (80.0-94.0); Platelet Count 183 10^3/uL (130-400); Red Cell Dist. Width 14.2 % (11.5-14.5)
[2025-03-07 08:32] LABS: ALT (SGPT) 60 U/L (0-50); AST (SGOT) 24 U/L (17-59); Albumin 2.6 g/dl (3.5-5.0); Alkaline Phosphatase 101 U/L (38-126); Blood Urea Nitrogen 9 mg/dl (9-20); Calcium 8.3 mg/dl (8.4-10.2); Carbon Dioxide 23 mmol/L (22-30); Chloride 104 mmol/L (98-107); Estimated Creatinine Clearance 74 ml/min; Glucose 105 mg/dl (70-99); Potassium 3.9 mmol/L (3.5-5.1); Sodium 131 mmol/L (135-145); Total Protein 5.0 g/dl (6.3-8.2); eGFR > 60.00
--- NOTE | 2025-03-07 08:36 | W.PN.HOSP.TC ---
Addendum entered and electronically signed by Jeramie Gray MD 03/07/25 16:29:
Patient did not have any more pain and tolerating diet per discussion with nursing
Discussed with GI continue with antibiotics
No need for Carafate for discharge
Continue PPI twice daily for discharge.
More than 30 minutes spent in discharge including
Final examination of the patient
Summarizing hospital stay
Instructions for continuing care to all relevant caregivers
Preparation of discharge records, prescriptions, and referral forms
Addendum entered and electronically signed by Jeramie Gray MD 03/07/25 13:45:
Seen and examined the patient. Agree with the plan formulated by the resident. See changes in my documentation
Late documentation.
84-year-old male with abdominal pain. Patient had ERCP for a stone on 03/01/2025. Return to ED with abdominal pain and underwent urgent ERCP on 03/03/2025 . Patient was admitted
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 Prior biliary sphincterotomy appears open no bleeding. CBD mildly dilated. Biliary tree was swept and sludge was found. 1 plastic stent placed in the gallbladder. 1 plastic stent in the CBD
CAT scan - Probable chronic outlet obstruction changes. Questionable cystitis. Otherwise, no convincing acute process in the abdomen or pelvis.
Awake alert oriented, cardiovascular system S1-S2 appreciated
Chest clear to auscultation
Abdomen no epigastric tenderness, mild back pain reported however patient does not have any tenderness in the spine.
No pedal edema
# Abdominal pain
ERCP 03/03/2025 with stents into the gallbladder as well as CBD
Likely post ERCP pancreatitis
May need repeat EGD in 6 weeks for stent removal
Currently on antibiotics
Surgery evaluation noted-no plans for cholecystectomy in patient.
Continue Levaquin and Flagyl to treat possible acute cholecystitis
Patient had breakfast and had more back pain. Discussed about low-fat diet for lunch and see how he does
White blood cell count is better
# Coronary disease-continue statin, aspirin
# Mild hyponatremia-follow
# Diabetes-hemoglobin A1c-7.7
Patient is on Jardiance, metformin as outpatient
Accu-Cheks and sliding scale coverage
OK to restart if sugars go up.
# Hyperlipidemia-hold statin with slightly elevated LFTs
# Enlarged prostate-Dutasteride
# DVT prophylaxis-Lovenox
# Full code
D/W daughter and pt's at bed side
D/W GD on the phone from daughter's cell.
Part of this note was created using voice recognition system. Occasional wrong word or��sound alike� substitutions may have inadvertently occurred due to the inherent limitations of voice recognition software. If noted kindly bring it to my
attention for correction.
Original Note:
Today's Communication/Plan
-
Patient tolerating diet well
Okay to DC per GI
Assessment / Plan
Assessment / Plan
84-year-old male with T2DM, skin cancer s/p surgical resection, overactive bladder, BPH, and recent EGD/ERCP on 03/01 for bile duct stone outpatient who presented with epigastric abdominal pain associate with chills, nausea and dark-colored stools,
now s/p urgent ERCP and 2 gallbladder stents inpatient on 03/03.
#Epigastric pain s/p ERCP x2, now with gallbladder and CBD stents
#Acute cholecystitis
#Elevated lipase
#ERCP induced pancreatitis
Abd US with sludge and gallstones in gallbladder with mild wall thickening and minimal pericholecystic fluid suggesting acute cholecystitis. PPD 4 EUS/ERCP biliary sphincterotomy with clearance of sludge. PPD 2 ERCP clearance of sludge with
placement of transpapillary stent into the GB (confirmed gallstones present) and stent to the CBD
- GI and general surgery following
--GS recs outpatient cholecystectomy with scheduled follow-up
- Pt with PCN allergy; s/p IV Levaquin 750 mg daily and IV Flagyl 500 mg every 8 hours: Transitioned to p.o. Levaquin and Flagyl for total of course of 7 days (last dose 03/10)
- Protonix 40 BID
- DC IV Dilaudid 0.25 mg for moderate pain, continue IV Dilaudid 0.5 mg for severe pain prn
- Zofran PRN
#Elevated lipase, likely post-ERCP pancreatitis.
Lipase >2000 03/04. Lipase 3223 03/05.
- Monitor lipase level
- DC LR at 120cc/hr
- Per GI if tolerating diet well, okay to go home with outpatient follow-up with Dr. Velez
#Hyponatremia
Na 131 from 134 yesterday. Likely in setting of low p.o. intake and antibiotics. Patient is asymptomatic, CTM.
#Chest pain, mostly epigastric region
- Cardiology consulted
- Trop negative, EKG with low voltage
- Continue aspirin
- Resume atorvastatin when LFT has improved.
#Constipation
AXR with moderate stool.
- Colace BID prn, Miralax daily, Sennakot qhs
- Fleet enema 03/04: No formed BM but distention of liquid stool with relief
#Type 2 diabetes
A1C 7.7%
- Hold metformin, Jardiance
- Insulin sliding scale
#Overactive bladder
- Continue Myrbetriq
#BPH
- Continue dutasteride
#Allergies
- Continue montelukast
CODE STATUS: Full code
DVT prophylaxis: Lovenox SQ
Dispo: Home health per PT
Anticipated Discharge: Today
Subjective/Interval History
-
Patient was seen at bedside this morning. Family member was at bedside. Patient reported doing well overnight had 1 episode of pain in the abdomen last night but everything subsided after pain medication. He also reported upper back pain and he
took Tylenol. This morning without nausea vomiting shortness of breath chest pain. Reported having stool yesterday that was formed and brown, no specks of blood. Date of Service: March 07, 2025
Objective Data
-
Labs:
Laboratory Results
03/07/25
07:32
WBC 13.2 H
Hgb 11.8 L
Hct 33.9 L
Plt Count 183
Sodium 131 L
Potassium 3.9
Chloride 104
Carbon Dioxide 23
BUN 9
Creatinine 0.5 L
Glucose 105 H
Calcium 8.3 L
Total Bilirubin 1.8 H
AST 24
ALT 60 H
Alkaline Phosphatase 101
Vital Signs:
Vital Signs
Temp Pulse Resp BP Pulse Ox
97.6 F 84 16 119/67 96
03/07/25 07:55 03/07/25 07:55 03/07/25 07:55 03/07/25 07:55 03/07/25 07:55
I&O
03/06/25 03/07/25 03/08/25
06:59 06:59 06:59
Intake Total 3680 / 3680 820 / 820
Balance 3680 / 3680 820 / 820
Review of Systems
-
History Source: Patient and Family
Constitutional: Reports No Symptoms; Denies Fever
EENT: Reports No Symptoms Reported; Denies Sore Throat or Runny Nose
Respiratory: Denies Cough or Trouble Breathing
Cardiac: Reports No Symptoms; Denies Chest Pain or Palpitations
Abdomen/GI: Reports No Symptoms; Denies Abdominal Pain, Nausea, Vomiting, Diarrhea or Constipated
Genitourinary: Reports No Symptoms; Denies Dysuria
Musculoskeletal: Reports No Symptoms
Skin: Reports No Symptoms
Neuro: Reports No Symptoms; Denies Headache
Physical Exam
-
General: Well Developed, Well Nourished, No Apparent Distress and Comfortable
HEENT: Normocephalic and Atraumatic
Respiratory: Clear to Auscultation and Non Labored Respirations; Negative Wheezes, Rales, Rhonchi or Crackles
Cardiac: Regular Rhythm and S1/S2; Negative Murmur or Rub
GI: Soft, Nondistended, Normal Bowel Sounds and Tender (LLQ, suprapubic dull 2/10 pain)
Musculoskeletal: No Clubbing, No Cyanosis and No Edema
Skin: Warm and Dry; Negative Rash
Neuro: Awake and Alert
[2025-03-07] MEDS: PROTONIX IV 40 MG IV (08:57)
[2025-03-07] MEDS: NSS (PRESERVATIVE FREE) 10 ML IV (08:57)
[2025-03-07] MEDS: MIRALAX 17 GRAMS PO (08:57)
[2025-03-07] MEDS: FEOSOL 325 MG PO (08:59)
[2025-03-07] MEDS: CARAFATE SUSPENSION 1 GM PO (08:59)
[2025-03-07] MEDS: LIDOCAINE 4% PATCH 1 PATCH TOPICAL (08:59)
[2025-03-07] MEDS: FLUSH (NSS) 1 FLUSH IV (08:59)
[2025-03-07] MEDS: NOVOLOG FLEXPEN-LOW RESISTANCE 1 UNITS SC (09:00)
[2025-03-07] MEDS: VITAMIN B-12 1000 MCG PO (09:00)
[2025-03-07] MEDS: PROSCAR 5 MG PO (09:00)
[2025-03-07] MEDS: MYRBETRIQ EXTENDED RELEASE 50 MG PO (09:00)
[2025-03-07] MEDS: LEVAQUIN 750 MG PO (10:40)
--- NOTE | 2025-03-07 10:59 | CM ---
Addendum entered by Amalia Ray RN 03/07/25 16:02:
IMM reviewed.
Original Note:
Reviewed the chart notes and spoke with the patient and his daughter at the beside. Discussed VN services. Patient and family selected VN. Referral sent in [facility]. CM continues to be available to patient/family and is monitoring medical
plan for needs at discharge.
Plan: Discharge to home with VN services.
[2025-03-07 12:43] LABS: Glucose - Point of Care 128 mg/dl (70-99)
[2025-03-07] MEDS: NOVOLOG FLEXPEN-LOW RESISTANCE SC (12:44)
--- NOTE | 2025-03-07 14:46 | W.DCSUMMARY ---
Discharge Summary
Discharge Data
Date of Admission: 03/03/25
Date of Discharge: 03/07/25
-
Pending Results: No
Hospital Course
Discharging Physician :
Dr. Gray
Dr. Marr
Disposition : Home
Primary care physician : Davon Andersen
Principal Discharge diagnosis :
Acute cholecystitis s/p EGD and ERCP x 2 for choledocholithiasis with esophagitis
Post ERCP pancreatitis
Chronic Discharge diagnosis :
CAD
Jnj-[id number] diabetes
BPH
Skin cancer
Hospital Course :
Mr. Pedraza is a 84-year-old male past medical history of type 2 diabetes, skin cancer status post surgical resection, overactive bladder, BPH, presented with right upper quadrant abdominal pain associate with chills, nausea and dark-colored
stools. �He had ERCP for bile duct stone on 03/01. �Since the procedure he has been having right upper quadrant pain and chills. �Dark-colored stools started today. �1 day after ERCP he states he had episode of blood-tinged vomiting which resolved.
In the ED vital signs showed a blood pressure of 101/61 pulse of 81 RR 16 temperature 98.3 pulse ox 95, he received some analgesics PPI antibiotics and GI and general surgery were consulted. Labs significant for leukocytosis with WBC 14K, hemoglobin
12.6, and significantly elevated LFTs, Tbili 6.3, AST 231, ALT 275, Alk phos 136, Lipase 248. Abdominal US shows sludge and gallstones in the GB with mild wall thickening, CT abdomen pelvis showed distention of the gallbladder and cystic duct.
Patient was admitted for cholecystolithiasis ERCP associated pancreatitis. He was started on Levaquin Flagyl IV fluids and kept n.p.o. patient was taken to the endoscopy suite by GI who performed an repeat EUS/ERCP with Dr. Velez, with placement of 1
trans papillary stent and 1 stent in the CBD. Postprocedure repeat lipase was greater than 2000 and patient was started on lactated Ringer's. Patient also reported chest pain with negative tropes and EKG with low voltage, and cardiology was
consulted. An echo was ordered which showed an ejection fraction of 55 to 60%, cardiology stated that in the setting of normal echo pain is most likely due to instrumentation rather than true cardiac pain. During the rest of the hospitalization
the patient continued to have improved pain control and diet was advanced to low-fat. General surgery evaluated the patient and determined that he may need cholecystectomy in the future after this hospitalization. Patient tolerated oral intake well
and vital signs remained stable for discharge. At discharge blood pressure was 119/67 pulse 84 RR 16 temp 97.6 satting at 96%
Important imaging findings :
03/04/2025 abdominal x-ray:
IMPRESSION:
Noncontrast bowel gas pattern.
Mild colonic stool burden.
Biliary stents project over the right upper quadrant.
03/03/25 US abdomen
1. There is sludge and gallstones in the gallbladder with mild wall thickening and minimal pericholecystic fluid. Patient reports pain when scanning over the gallbladder. These findings suggest acute cholecystitis.
2. There are bilateral renal cysts
3. There is a nonobstructing right renal calculus
03/03/25 CT a/p 1. Probable chronic outlet obstruction changes. Questionable cystitis. Otherwise, no convincing acute process in the abdomen or pelvis.
Procedure findings :
03/03- EUS - There was dilation in the common bile duct which measured up to 9 mm- Echogenic material (hypoechoic) suggestive of sludge vs ? clot was visualized endosonographically in the common bile duct- Multiple stones were visualized
endosonographically in the gallbladder body - There was no sign of significant pathology in the ampulla. No specimens collected
03/03- ERCP -
- Acquired duodenal stenosis.
- Prior biliary sphincterotomy appeared open. No bleeding or clot
was seen.
- The common bile duct was mildly dilated.
- The biliary tree was swept and sludge was found.
- Given the previously injected contrast remaining persistently in
GB and US showing findings suggestive of cholecystitis, decision was
made to place stent into GB. One plastic stent was placed into the
gallbladder.
- One plastic stent was placed into the common bile duct.
�
Discharge Plan
-
Patient Disposition: Home (Routine Discharge)
Discharge Diagnosis/Procedures: Acute cholecystitis s/p EGD and ERCP x 2 for choledocholithiasis with esophagitis
Post ERCP pancreatitis
Coronary artery disease
Mild to moderate mitral valve regurgitation per ECHO .( Leaky valve)
Diabetes
Hyperlipidemia
Enlarged prostate
Condition: Good
Diet: Low Fat and Diabetic, Carb Controlled
Activity: As tolerated
Driving Restrictions: As prior to admission
Bathing Restrictions: None
Blood Work: CBC with differential, CMP and lipase in a week
Other Services: VN
Activity Restrictions/Additional Instructions:
Follow-up with Dr. Velez on the . Follow-up with surgeon to schedule cholecystectomy
Referrals:
Davon Andersen MD [Family Provider, Internal Medicine] - in less than 1 week
Atilio Macedo MD [Active, Cardiology]
Referral Note: For mitral Regurgitation
Vikash Velez MD [Active, Gastroenterology] - 03/14/25 9:30 am
Referral Note:
Deny Mathew MD [Active, Surgical] - in four to six weeks
Referral Note: follow up to discuss cholecystectomy
Prescriptions:
New
lidocaine 4 % Adhesive Patch,Medicated
1 patch topical DAILY Qty: 0 0RF
metronidazole 500 mg Tablet
500 mg PO Q8H Qty: 18 0RF
levofloxacin 750 mg Tablet
750 mg PO DAILY Qty: 6 0RF
pantoprazole [Protonix] 40 mg tablet,delayed release (DR/EC)
40 mg PO BID Qty: 60 0RF
Continued
atorvastatin 40 mg Tablet
40 mg PO HS Qty: 0 0RF
cyanocobalamin (vitamin B-12) 1,000 mcg Tablet
1,000 mcg PO DAILY Qty: 0 0RF
ferrous sulfate 325 mg (65 mg iron) Tablet
325 mg PO DAILY Qty: 0 0RF
metformin 1,000 mg Tablet
1,000 mg PO DAILY Qty: 0 0RF
montelukast [Singulair] 10 mg Tablet
10 mg PO HS Qty: 0 0RF
aspirin 81 mg Tablet
81 mg PO DAILY Qty: 0 0RF
dutasteride 0.5 mg Capsule
0.5 mg PO DAILY Qty: 0 0RF
cholecalciferol (vitamin D3) 125 mcg (5,000 unit) Tablet
125 mcg PO DAILY Qty: 0 0RF
mirabegron [Myrbetriq] 50 mg Tablet Extended Release 24 Hr
50 mg PO DAILY Qty: 0 0RF
Jardiance 10 mg Tablet
10 mg PO DAILY Qty: 0 0RF
Discharge Orders:
Discharge Patient (As Directed); Ordered 03/07/25
Ordered By: Jeramie Gray
Discharge Date and Time
Print Language: FAROESE
[2025-03-07 15:38] VITALS: BP 117/57
== END 2025-03-07 17:55 | disposition home health service (06) | DRG 445 ==
LOC: 2 SOUTH 15:13
PROVIDERS: Internal Medicine Gastroenterology; Nurse Practitioner Adult Health; Student in an Organized Health Care Education/Training Program; ADMITTING PHYSICIAN Hospitalist; ATTENDING PHYSICIAN Hospitalist; CONSULT PHYSICIAN Internal Medicine Cardiovascular Disease; CONSULT PHYSICIAN Internal Medicine Gastroenterology; CONSULT PHYSICIAN Surgery; EMERGENCY PHYSICIAN Student in an Organized Health Care Education/Training Program; FAMILY PHYSICIAN Internal Medicine
PROC: 0FC98ZZ Extirpation of Matter from Common Bile Duct, Via Natural or Artificial Opening Endoscopic (ICD-10-PCS; 2025-03-03)
PROC: 0F798DZ Dilation of Common Bile Duct with Intraluminal Device, Via Natural or Artificial Opening Endoscopic (ICD-10-PCS; 2025-03-03)
DX: K80.62 Calculus of gallbladder and bile duct with acute cholecystitis without obstruction (principal); E87.1 Hypo-osmolality and hyponatremia; K31.5 Obstruction of duodenum; K91.89 Other postprocedural complications and disorders of digestive system; E11.9 Type 2 diabetes mellitus without complications; N32.81 Overactive bladder; R74.8 Abnormal levels of other serum enzymes; Y84.8 Other medical procedures as the cause of abnormal reaction of the patient, or of later complication, without mention of misadventure at the time of the procedure; E78.5 Hyperlipidemia, unspecified; Z79.82 Long term (current) use of aspirin; Z79.899 Other long term (current) drug therapy
CPT/HCPCS: 74018; 74177; 74330; 76000; 76700; 80053; 82962; 83036; 83690; 84484; 85014; 85018; 85025; 85027; 86850; 86900; 86901; 93005; 93306; 96374; 96375; 96376; 97162; 97166; 99285; C1769; C2617; C2625; Q9967

== ENCOUNTER 2025-04-22 06:06 | Day surgery (SDC) | payer MEDICARE, OTHER, SELFPAY ==
[2025-04-22 08:43] VITALS: BMI 19.7
[2025-04-22 08:44] VITALS: BP 131/64
[2025-04-22 08:56] LABS: Glucose - Point of Care 112 mg/dl (70-99)
[2025-04-22 10:14] VITALS: BP 99/59
[2025-04-22 10:15] VITALS: BP 93/66
[2025-04-22 10:25] VITALS: BP 113/58
[2025-04-22 10:30] VITALS: BP 118/72
== END 2025-04-22 10:45 | disposition home or self-care (01) ==
LOC: SDS 06:06
PROVIDERS: ATTENDING PHYSICIAN Internal Medicine Gastroenterology
DX: K80.50 Calculus of bile duct without cholangitis or cholecystitis without obstruction (principal); Z96.89 Presence of other specified functional implants
CPT/HCPCS: 43247; 82962